=== PATIENT | male | born 1960 | race Caucasian/White ===

== ENCOUNTER 2016-11-17 13:48 | Day surgery (SDC) | payer OTHER ==
[~2016-11-17] VITALS: Ht 175.3 cm; Wt 87.1 kg
[2016-11-17] VITALS (10 sets, daily range): BP systolic 110–121; BP diastolic 67–77; PULSE 70–94; RESP 15–19; Ht 175.3 cm; Wt 87.1 kg
[~2016-11-17 13:48] MED LIST: AZIT250T94 PO; BUPIVACAINE 0.25% (MPF) 30 ML INJ ONE; CEFAZOLIN 1 GM INJ ONE; CETI10CA PO; CIPROFLOXACIN 400MG/D5W 200 ML IVPB ONE; GUAI118L94 PO; IBUP-1542 PO; SOD CHLORIDE 0.9% 1,000 ML IV SCH
[2016-11-17] MEDS ORDERED: PROP10TA6 PO (15:37)
[2016-11-17] MEDS ORDERED: OMEP20CA16 PO (15:37)
[2016-11-17] MEDS ORDERED: SPIR100T31 PO (15:37)
[2016-11-17] MEDS ORDERED: SOD CHLORIDE 0.9% 1,000 ML IV SCH (16:00)
[2016-11-17] MEDS ORDERED: CIPROFLOXACIN 400 MG in D5W 200 ML IVPB ONE (16:00)
[2016-11-17] MEDS ORDERED: MIDAZOLAM 1 MG/ML 2 ML INJ ONE (16:20)
[2016-11-17] MEDS ORDERED: ROPIVACAINE 0.2% 20 ML VIAL ONE (16:21)
[2016-11-17] MEDS ORDERED: METOCLOPRAMIDE 10 MG INJ ONE (16:21)
[2016-11-17] MEDS ORDERED: PROPOFOL 20 ML ONE ×2 (16:43→17:37)
[2016-11-17] MEDS ORDERED: LIDOCAINE 2% (SDV) 5 ML INJ ONE (16:44)
[2016-11-17] MEDS ORDERED: FENTAnyl 50 MCG/ML VIAL ONE (16:58)
[2016-11-17] MEDS ORDERED: DEXAMETHASONE 4 MG/ML 1 ML INJ ONE (17:12)
[2016-11-17] MEDS ORDERED: HYDROmorphONE (0.2 MG/ML) 10ML SYG IV PRN ×3 (17:30)
[2016-11-17] MEDS ORDERED: METOCLOPRAMIDE 10 MG INJ IV PRN (17:30)
[2016-11-17] MEDS ORDERED: MEPERIDINE 25 MG INJ IV PRN (17:30)
[2016-11-17] MEDS ORDERED: OXYCODONE/ACETAMINOPHEN (5/325) TAB PO PRN ×2 (17:30)
[2016-11-17] MEDS ORDERED: ONDANSETRON 4 MG INJ IV PRN (17:30)
[2016-11-17] MEDS ORDERED: DIPHENHYDRAMINE 50 MG INJ IV PRN (17:30)
[2016-11-17] MEDS ORDERED: NEOSTIGMINE 3 MG/3 ML SYRINGE ONE (17:34)
[2016-11-17] MEDS ORDERED: GLYCOPYRROLATE 1 MG INJ ONE (17:34)
[2016-11-17] MEDS ORDERED: HYDROmorphONE 2 MG/ML SYG ONE (17:51)
--- NOTE | 2016-11-17 17:59 | OPR ---
Date/Time of Note Date/Time of Note DATE: 11/17/16 TIME: 17:58 Operative Report Procedure Date: Nov 17, 2016 Preoperative Diagnosis LIH Postoperative Diagnosis LIH Operation Performed open LIH repair with large ultrapro hernia system mesh Surgeon: Shirley ORTIZ Specimens hernia sac Shirley ORTIZ Nov 17, 2016 17:59
[2016-11-17] MEDS ORDERED: oxyCODONE 5 MG TAB PO ONE (18:00)
--- NOTE | 2016-11-17 18:19 | OPR ---
DATE OF OPERATION: 11/17/2016 INDICATION: This is a 56-year-old male with a large incarcerated left inguinal hernia. He requests surgical repair. Risks, alternatives, benefits, and personnel were discussed with the patient. Th e patient expressed understanding and consents to the operation. Potential complications including but not limited to bleeding, infection, recurrence of hernia were discussed with the patient and fam arias members. They expressed understanding and consent to the operation. PREOPERATIVE DIAGNOSIS: Large incarcerated left inguinal hernia. POSTOPERATIVE DIAGNOSIS: Large incarcerated left inguinal hernia. OPERATION PERFORMED: Open left inguinal hernia repair with UltraPro Hernia System mesh, large. SURGEON: Lilli Odom MD SPECIMEN: Large hernia sac. COMPLICATIONS: None. ANESTHESIA: General. DESCRIPTION OF PROCEDURE: The patient was taken to the OR and prepped and draped in the usual ster ile fashion. Surgical timeout was performed. IV antibiotics were given. Left inguinal oblique inc ision was made with a 10 blade. Dissection cautery was carried down to the external oblique fascia, which was opened with a 15 blade. This incision is extended medial inferiorly and lateral superior ly with Metzenbaum scissors. Cord structures were identified. Large hernia sac was identified wit h fluid contents. This was all serous and was aspirated and discarded. The hernia is reduced and t he disk portion of the UltraPro Hernia System Mesh was secured in place with a running 0 Prolene fro m the pubic tubercle along the shelving edge of the inguinal ligament and superiorly to the internal oblique with interrupted 3-0 Vicryl. Onlay mesh is secured in place with a running 0 Prolene from the pubic tubercle along the shelving edge of the inguinal ligament and straps are created and reapp roximated to recreate the inguinal ring. The onlay mesh was secured to the internal oblique with in terrupted 3-0 Vicryl. The external oblique fascia was closed with running 3-0 Vicryl. Jeremy's was closed with interrupted 3-0 Vicryl. Skin was closed with skin lorrie. Dry dressings were applied . Dictated By: LILLI JAUREGUI/CHANDANA Conf#: [id number] DID#: [id number]
== END 2016-11-17 18:51 | disposition home or self-care (01) ==
LOC: SDS 13:48
PROVIDERS: ATTEND Surgery
DX: K40.30 Unilateral inguinal hernia, with obstruction, without gangrene, not specified as recurrent (principal)
CPT/HCPCS: 49507; 88302; C1781; J0690; J1100; J1170; J2250; J2710; J2765; J2795; J3010; Z7512; Z7610

== ENCOUNTER 2017-05-09 13:22 | Inpatient (IN) | payer OTHER ==
[~2017-05-09] VITALS: Ht 175.3 cm; Wt 90.5 kg
[~2017-05-09 13:22] MED LIST changes: -AZIT250T94 PO; -BUPIVACAINE 0.25% (MPF) 30 ML INJ ONE; -CEFAZOLIN 1 GM INJ ONE; -CETI10CA PO; -CIPROFLOXACIN 400MG/D5W 200 ML IVPB ONE; -GUAI118L94 PO; -IBUP-1542 PO; +OMEP20CA16 PO; +PROP10TA6 PO; -SOD CHLORIDE 0.9% 1,000 ML IV SCH; +SPIR100T31 PO
[2017-05-09 13:25] VITALS: Ht 175.3 cm; Wt 90.5 kg
[2017-05-09] MEDS ORDERED: ALBUTEROL 0.5% (NEB) 2.5 MG/0.5 ML AMP INH STA (15:46)
[2017-05-09] MEDS ORDERED: METHYLPREDNISOLONE 125 MG INJ IV STA (15:46)
[2017-05-09 16:13] LABS: ABNORMAL IP MESSAGE 1; BASOPHILS % 0.4 % (0.0-2.0); EOSINOPHILS % 0.2 % (0.0-7.0); HEMOGLOBIN 12.2 g/dl (14.0-18.0); LYMPHOCYTES # 0.6 10^3/ul (0.8-2.9); LYMPHOCYTES % 11.5 % (15.0-51.0); MEAN CORPUSCULAR HEMOGLOBIN 32.2 pg (29.0-33.0); MEAN CORPUSCULAR VOLUME 97.6 fl (82.0-101.0); MEAN PLATELET VOLUME 11.5 fl (7.4-10.4); MONOCYTE # 0.6 10^3/ul (0.3-0.9); MONOCYTES % 11.3 % (0.0-11.0); NEUTROPHILS % 75.8 % (39.0-77.0); PLATELET COUNT 52 10^3/UL (140-415); POSITIVE DIFF @See below; RED BLOOD COUNT 3.79 10^6/ul (4.70-6.10); RED CELL DISTRIBUTION WIDTH 17.5 % (11.5-14.5); WHITE BLOOD COUNT 5.2 10^3/ul (4.8-10.8)
[2017-05-09 16:36] LABS: CALCIUM 7.7 mg/dl (8.4-10.2); CREATININE 0.84 mg/dl (0.61-1.24); POTASSIUM 3.6 mmol/L (3.5-5.1)
[2017-05-09 16:45] LABS: TROPONIN-I 0.015 ng/ml (0.00-0.12)
--- NOTE | 2017-05-09 17:05 | RADRPT ---
PROCEDURE: XR Chest. CLINICAL INDICATION: Dyspnea. TECHNIQUE: XR CHEST AP PORTABLE COMPARISON: 05/16/2016. FINDINGS: There is a new large right pleural effusion with atelectasis. A large rounded density overlies the m ajority of the right cardiac silhouette. The left lung is clear. The left heart border is unremarkab le. There is no evidence of pneumothorax. Osseous structures are grossly intact. IMPRESSION: 1. New large right pleural effusion with atelectasis. 2. New rounded retrocardiac density which may represent a large hiatal hernia versus vascular abnor mality. CT chest may be useful for further evaluation. RPTAT: JJ .Reno Ramachandran MD, MD Date Time Electronically viewed and signed by .Reno Ramachandran MD, on 05/09/2017 17:04 .A/
[2017-05-09 17:30] LABS: PLATELET ESTIMATE SIG DECREASED
[2017-05-09] MEDS ORDERED: VANCOMYCIN 1 GM (PMX) 250 ML IVPB STA (17:35)
[2017-05-09] MEDS ORDERED: CEFTRIAXONE 1 GM/50 ML (PMX) 50 ML IVPB STA (17:35)
[2017-05-09] MEDS ORDERED: RIBA200C12 PO (17:43)
[2017-05-09] MEDS ORDERED: SOFO1TAB PO (17:43)
--- NOTE | 2017-05-09 17:56 | ERD ---
ER Documentation Chief Complaint Chief Complaint sob.fever,cough x 1 week HPI This is a 56-year-old male who states she has had a cough for 5 days has been dry until yesterday and today has had some green productive sputum. Patient said he had a fever today. Patient has some shortness of breath at rest is very mild worse when he walks and has wheezing at rest as well. He said when he tries to walk his wheezing gets worse. No chest pain no nausea vomiting diarrhea. ROS All systems reviewed and are negative except as per history of present illness. Medications Home Meds Reported Medications Sofosbuvir/Velpatasvir (Epclusa 400 mg-100 mg Tablet) 1 Each Tablet, 1 EACH PO DAILY, TAB TAKE FOR 3 MONTHS START DATE 04/11/17 05/09/17 Ribavirin (Ribavirin) 200 Mg Capsule, 600 MG PO BID, CAP FOR 3 MONTHS START DATE 04/11/17 05/09/17 Discontinued Reported Medications Omeprazole* (Omeprazole*) 20 Mg Capsule.dr, 20 MG PO DAILY, #30 CAP 11/17/16 Spironolactone* (Spironolactone*) 100 Mg Tablet, 25 MG PO DAILY, TAB 11/17/16 Propranolol Hcl* (Propranolol Hcl*) 10 Mg Tablet, 10 MG PO BID, TAB 11/17/16 [none] Unknown Strength No Conflict Check 07/01/15 Allergies Allergies: Coded Allergies: Penicillins (Verified Allergy, Unknown, 05/09/17) PMhx/Soc History of Surgery: No Anesthesia Reaction: No Hx Neurological Disorder: No Hx Respiratory Disorders: No Hx Cardiac Disorders: No Hx Psychiatric Problems: No Hx Miscellaneous Medical Probl: No Hx Alcohol Use: No Hx Substance Use: No Hx Tobacco Use: No Smoking Status: Never smoker FmHx Family History: No coronary disease Physical Exam Vitals Vital Signs Date Time Temp Pulse Resp B/P Pulse Ox O2 Delivery O2 Flow Rate FiO2 05/09/17 16:03 112 18 95 21 05/09/17 13:25 102.3 117 24 130/77 95 Physical Exam Const: Well-developed, well-nourished Head: Atraumatic, normocephalic Eyes: Normal Conjunctiva, PERRLA, EOMI, normal sclera, no nystagmus ENT: Normal External Ears, Nose and Mouth, moist mucus membranes. Neck: Full range of motion. No meningismus, no lymphadenopathy. Resp: Markedly decreased breath sounds in the right lung luther with bilateral wheezes Cardio: Regular rate and rhythm, no murmurs, S1 S2 present Abd: Soft, non tender x 4, non distended. Normal bowel sounds, no guarding or rebound, no pulsitile abdominal masses or bruits Skin: No petechiae or rashes, no ecchymosis , no maculopapular rash Back: No midline or flank tenderness Ext: No cyanosis, or edema, FROM x 4, normal inspection, neurovascularly intact x 4 Neur: Awake and alert, STR 5/5 x 4, sensation intact x 4, no focal findings, cerebellum intact Psych: Normal Mood and Affect Result Diagram: 05/09/17 1555 05/09/17 1555 Results 24 hrs Laboratory Tests Test 05/09/17 15:55 White Blood Count 5.210^3/ul Red Blood Count 3.7910^6/ul Hemoglobin 12.2g/dl Hematocrit 37.0% Mean Corpuscular Volume 97.6fl Mean Corpuscular Hemoglobin 32.2pg Mean Corpuscular Hemoglobin Concent 33.0g/dl Red Cell Distribution Width 17.5% Platelet Count 5210^3/UL Mean Platelet Volume 11.5fl Neutrophils % 75.8% Lymphocytes % 11.5% Monocytes % 11.3% Eosinophils % 0.2% Basophils % 0.4% Nucleated Red Blood Cells % 0.0/100WBC Neutrophils # 4.010^3/ul Lymphocytes # 0.610^3/ul Monocytes # 0.610^3/ul Eosinophils # 0.010^3/ul Basophils # 0.010^3/ul Nucleated Red Blood Cells # 0.010^3/ul Platelet Estimate SIG DECREASED Sodium Level 137mmol/L Potassium Level 3.6mmol/L Chloride Level 107mmol/L Carbon Dioxide Level 22mmol/L Anion Gap 12 Blood Urea Nitrogen 10mg/dl Creatinine 0.84mg/dl Glucose Level 94mg/dl Calcium Level 7.7mg/dl Troponin I 0.015ng/ml Current Medications Medications (Trade) Dose Ordered Sig/Vernon Route PRN Reason Start Time Stop Time Status Last Admin Dose Admin Albuterol (Proventil 0.5% (Neb)) 10 mg ONCE STAT INH 05/09/17 15:46 05/09/17 15:48 DC 05/09/17 16:01 Methylprednisolone Sodium Succinate (Solu-Medrol) 125 mg ONCE STAT IV 05/09/17 15:46 05/09/17 15:48 DC 05/09/17 15:46 Acetaminophen 650 mg 650 mg ONCE ONCE PO 05/09/17 18:00 05/09/17 18:01 05/09/17 17:44 Vancomycin HCl 250 ml @ 125 mls/hr ONCE STAT IVPB 05/09/17 17:35 05/09/17 19:34 Ceftriaxone Sodium (Rocephin) 50 ml @ 100 mls/hr ONCE STAT IVPB 05/09/17 17:35 05/09/17 18:04 05/09/17 17:44 Procedures/MDM PROCEDURE: XR Chest. CLINICAL INDICATION: Dyspnea. TECHNIQUE: XR CHEST AP PORTABLE COMPARISON: 05/16/2016. FINDINGS: There is a new large right pleural effusion with atelectasis. A large rounded density overlies the majority of the right cardiac silhouette. The left lung is clear. The left heart border is unremarkable. There is no evidence of pneumothorax. Osseous structures are grossly intact. IMPRESSION: 1. New large right pleural effusion with atelectasis. 2. New rounded retrocardiac density which may represent a large hiatal hernia versus vascular abnormality. CT chest may be useful for further evaluation. RPTAT: JJ .Reno Ramachandran MD, Date Time Electronically viewed and signed by .Reno Ramachandran MD, on 05/09/2017 17:04 .A/ CC: GO NUÑEZ DO Patient had breathing treatments and steroids also had antibiotics and Tylenol. He states after the breathing treatments he is breathing much better. The patient is nontoxic and well-appearing he is not appearing septic. He had blood cultures done and will be admitted to the hospital for a large pleural effusion with likely underlying consolidation Departure Diagnosis: Primary Impression: Pleural effusion, right Additional Impressions: Shortness of breath Pneumonia Pneumonia type: due to unspecified organism Laterality: right Lung location : lower lobe of lung Qualified Code: J18.1 - Pneumonia of right lower lobe due to infectious organism Condition: Stable GO NUÑEZ DO May 09, 2017 17:56
[2017-05-09] MEDS ORDERED: ACETAMINOPHEN 325 MG TAB PO ONE (18:00)
[2017-05-09] MEDS ORDERED: SOD CHLORIDE 0.9% 1,000 ML IV SCH (19:23)
[2017-05-09] MEDS ORDERED: ACETAMINOPHEN 325 MG TAB PO PRN ×2 (19:30→23:00)
[2017-05-09] MEDS ORDERED: ONDANSETRON 4 MG INJ IV PRN (19:30)
[2017-05-09 20:41] VITALS: TEMP 99.3
--- NOTE | 2017-05-09 20:52 | RADRPT ---
PROCEDURE: CT Chest without contrast. CLINICAL INDICATION: Abnormal chest x-ray. TECHNIQUE: CT scan of the chest without contrast was performed on a multidetector high-resolution C T scanner. Coronal and sagittal reformatted images were obtained from the axial source images. The total exam CTDI equals 13.63 mGy and the total exam DLP equals 530.97 mGy-cm. DICOM images are avail able. Evaluation is partially limited due to motion artifact. One or more of the following dose reduction techniques were used: - Automated exposure control. - Adjustment of the mA and/or kV according to patient size. - Use of iterative reconstruction technique. COMPARISON: Chest x-ray dated 05/09/2017. FINDINGS: Lungs, pleura, airways, and thoracic inlet: There is a large right pleural effusion with associated complete collapse of the right middle and right lower lobes and compressive atelectasis involving t he dependent right upper lobe. The left lung is clear. There is no pneumothorax. No focal pulmonary nodule or mass is identified. The tracheobronchial tree is patent and normal in course and caliber. There is irregular wall thickening of the mid and distal esophagus, which is patulous. Cardiovascular system, mediastinum, and lymphatics: There is shift of the mediastinal structures to wards the left. The heart is normal in size without pericardial thickening or effusion. There are a therosclerotic changes of the aorta, which is nonaneurysmal. There is no axillary, hilar, or mediast inal adenopathy. Visualized upper abdomen: The liver is small and nodular in contour, suggestive of underlying cirrh osis. There is a stone of the visualized gallbladder and the visualized spleen is at the upper limit s of normal in size measuring 30.6 cm, which extends inferiorly out of the field of view. There is l ikely a recanalized paraumbilical vein and there are additional tubular serpiginous structures in th e visualized upper abdomen. There is ascites within the visualized upper abdomen. Musculoskeletal system and soft tissues: There is mild multilevel degenerative enthesopathy. There are no concerning osseous lesions. There is bilateral gynecomastia. IMPRESSION: 1. Large right effusion with associated complete collapse of the right middle and right lower lobes and compressive atelectasis of the dependent right upper lobe. Associated shift of the mediastinal structures towards the left. 2. Morphologic changes of the liver, suggestive of underlying cirrhosis. Stigmata of portal hyperte nsion including varices, likely splenomegaly, and ascites. 3. Cholelithiasis. 4. Patulous esophagus with irregular wall thickening at the mid and distal portions. Correlation wi th upper GI series versus upper endoscopy is recommended. 5. Vascular calcifications consistent with atherosclerosis. 6. Bilateral gynecomastia. RPTAT: HLBP .Jian Dowd MD, MD Date Time Electronically viewed and signed by .Jian Dowd MD, on 05/09/2017 20:51 .P/
[2017-05-09 21:11] VITALS: BP 116/75; RESP 20
[2017-05-09 22:25] VITALS: PULSE 100
[2017-05-09] MEDS ORDERED: ONDANSETRON 4 MG TAB PO PRN (23:00)
[2017-05-09] MEDS ORDERED: NACL 0.9% 3 ML SYG IV SCH (23:00)
--- NOTE | 2017-05-09 23:03 | HP ---
Date/Time of Note Date/Time of Note DATE: 05/09/17 TIME: 23:02 Assessment/Plan VTE Prophylaxis VTE Prophylaxis Intervention: SCD's Assessment/Plan Chief Complaint/Hosp Course This is a 57-year-old male being admitted to the telemetry floor for: #1 large right-sided pleural effusion: Etiology unknown at this time patient does have a history of cirrhosis. Which could possibly be a contributing factor. At the current time we will schedule the patient for ultrasound-guided thoracentesis. Will obtain fluid analysis to further evaluate the pleural effusion. Patient does have thrombus cytopenia platelet count 52,000, will will need to confirm in the morning with IR still performed the procedure. Will check a PT PTT and INR. Also check a 2D echocardiogram and a BNP. #2Fever: unknown origin at this time. presented with elevated temp. Possible underlying pna though unable to visualize due to extensive large pleural effusion. I will begin treatment with levaquin at the current time. Await blood cultures, will also check a UA. #3cirrhosis: CT scan does show the Stigmata of portal hypertension including varices, likely splenomegaly, and ascites. Patient has never had an endoscopy done before. Will check an ammonia level. Will also give a dose of Lasix 40 mg IV 1. Patient at the current time does not appear confused or encephalopathic. Will check coags. #4 Abnormal esophageal appearance on CT: Patulous esophagus with irregular wall thickening at the mid and distal portions. She denies any history of issues with swallowing. However he was told in the past that he had varices. at the current time will keep patient n.p.o. Will consult GI for possible endoscopy. Upper GI x-ray ordered #5 hepatitis C: We will check a viral panel. We will continue patient's home medications. He is followed by liver specialist as an outpatient. #6 thrombocytopenia: Likely secondary to patient underlying cirrhosis/hepatitis C. Patient is a [employer] and he does not want to receive any blood products including platelets. #7 DVT GI prophylaxis: SCDs, no GI prophylaxis indicated Patient is agreeable to having an endoscopy to assess his esophageal varices as well as as the abnormal esophageal wall thickening seen on the CAT scan. Patient is agreeable to having an ultrasound-guided thoracentesis to help drain his large right pleural effusion. He understands risks and benefits of the procedure. We will need to confirm with interventional radiology in the a.m. if his platelet count is adequate for thoracentesis as patient does not want any blood products secondary to him being a Anab[employer]. Further treatment strategy will be implemented as per the clinical course Problems: HPI/ROS Admit Date/Time Admit Date/Time May 09, 2017 at 19:25 Hx of Present Illness cc: cough x 5 days This is a 56-year-old male who states she has had a cough for 5 days has been dry until yesterday and today has had some green productive sputum. Patient said he had a fever today. Patient has some shortness of breath at rest is very mild worse when he walks and has wheezing at rest as well. He said when he tries to walk his wheezing gets worse. No chest pain no nausea vomiting diarrhea. allergies: pcn Meds: ribavirin epclose Social history: Patient is a An[employer] and he refuses any blood transfusions or platelets, etc. ROS Const: As per HPI Eyes : No pain discharge or redness or change in visual acuity ENT: No pain, sore throat, congestion, congestion, dysphagia or discharge Respiratory: As per HPI Cardiovascular: No chest pain, palpitation, PND, or edema GI : no change in appetite, abdominal pain, nausea, vomiting, diarrhea, constipation, or change in the color his stool Genitourinary: No dysuria, hematuria, flank pain , discharge or CVA tenderness Musculoskeletal: No joint pain, back pain, neck pain, restricted range of motion in neck or joints Skin: No rash, bruising or hives Neuro: No headache, dizziness, syncope, seizure, focal weakness Endocrine: No polyuria, polydipsia, temperature intolerance Psych: No hallucination, depression, anxiety or suicidal ideation PMH/Family/Social Past Medical History Cirrhosis, HCV, gastritis Past Surgical History Left inguinal hernia surgery Family History Significant Family History: no pertinent family hx Social History Previous history of IV drug use greater than 25 years ago Alcohol Use: none Smoking Status: Never smoker Drug Use: none Exam/Review of Systems Vital Signs Vitals Vital Signs Date Time Temp Pulse Resp B/P Pulse Ox O2 Delivery O2 Flow Rate FiO2 05/09/17 21:11 98.3 96 20 116/75 94 05/09/17 16:03 21 Exam Exam General: She is lying in bed in respiratory distress HEENT: Atraumatic, normocephalic. The pupils are equal, round and reactive. Extraocular motor are intact Neck: Supple with full range of motion. No rigidity or meningismus Chest: Nontender Lungs: No breath sounds on the bottom two thirds of the right lung on respiration, left lung clear to auscultation no rales or wheezes,, no acute respiratory distress Heart: Normal S1-S2, Regular rhythm and rate. No murmur, S3, or S4 Abdomen: Soft , nontender, nondistended , bowel sounds are present. No guarding no rebound tenderness , No masses or organomegaly. No costovertebral temporal angle mass Extremities: Normal to inspection, no edema no cyanosis Neurologic: Normal mental status, speech normal, cranial nerves II through XII are intact, motor and sensory are intact, no focal weakness Labs Result Diagram: 05/09/17 1555 05/09/17 1555 Medications Medications Current Medications Sodium Chloride (NS) 1,000 ml @ 80 mls/hr [id number] IV ; Start 05/09/17 at 19:23 ; Stop 05/10/17 at 07:52 FÁTIMA BENNETT May 09, 2017 23:03
[2017-05-09] MEDS ORDERED: LEVOFLOXACIN 750MG/D5W (PMX) 150 ML IVPB ONE (23:30)
[2017-05-09 23:53] VITALS: BP 118/78; RESP 20
[2017-05-10] VITALS (11 sets, daily range): BP systolic 114–128; BP diastolic 68–80; PULSE 89–97; RESP 16–20
[2017-05-10] MEDS ORDERED: [UNRECOGNIZED DRUG - REMARK] XX SCH (08:00)
[2017-05-10] MEDS ORDERED: [UNRECOGNIZED DRUG - MIXTURE] XX SCH (08:00)
[2017-05-10] MEDS ORDERED: NON-FORMULARY/PATIENT OWN MED (Sofosbuvir/Velpatasvir (Epclusa 400 mg-100 mg Tablet) 1 EAC PO SCH (09:00)
[2017-05-10] MEDS: SOFOSBUVIR PO SCH (09:00)
[2017-05-10] MEDS: RIBAVIRIN PO SCH ×2 (09:00→21:35)
[2017-05-10] MEDS: VELPATASVIR PO SCH (09:00)
[2017-05-10] MEDS ORDERED: RIBAVIRIN 600 MG PO SCH (09:00)
[2017-05-10 09:19] LABS: ABNORMAL IP MESSAGE 1; BASOPHILS % 0.2 % (0.0-2.0); HEMATOCRIT 36.1 % (42.0-52.0); HEMOGLOBIN 11.7 g/dl (14.0-18.0); LYMPHOCYTES # 0.4 10^3/ul (0.8-2.9); LYMPHOCYTES % 9.1 % (15.0-51.0); MEAN CORPUSCULAR HEMOGLOBIN 32.1 pg (29.0-33.0); MEAN CORPUSCULAR HGB CONC 32.4 g/dl (32.0-37.0); MEAN CORPUSCULAR VOLUME 99.2 fl (82.0-101.0); MEAN PLATELET VOLUME 12.1 fl (7.4-10.4); MONOCYTE # 0.2 10^3/ul (0.3-0.9); MONOCYTES % 4.8 % (0.0-11.0); NEUTROPHIL # 3.5 10^3/ul (1.6-7.5); NEUTROPHILS % 85.2 % (39.0-77.0); PLATELET COUNT 39 10^3/UL (140-415); POSITIVE DIFF @See below; RED BLOOD COUNT 3.64 10^6/ul (4.70-6.10); RED CELL DISTRIBUTION WIDTH 17.3 % (11.5-14.5); WHITE BLOOD COUNT 4.2 10^3/ul (4.8-10.8)
[2017-05-10 09:40] LABS: INR 2.12; PT RATIO 1.9
[2017-05-10 09:41] LABS: PARTIAL THROMBOPLASTIN TIME 37.8 Sec (25.0-35.0)
[2017-05-10 09:51] LABS: ALBUMIN 2.5 g/dl (3.3-4.9); ALBUMIN/GLOBULIN RATIO 0.49; BILIRUBIN,INDIRECT 1.5 mg/dl (0-1.1); BILIRUBIN,TOTAL 1.5 mg/dl (0.2-1.3); CALCIUM 7.6 mg/dl (8.4-10.2); CHOL/HDL RATIO 3.3 RATIO; CREATININE 0.74 mg/dl (0.61-1.24); MAGNESIUM 1.8 mg/dl (1.7-2.5); TOTAL PROTEIN 7.6 g/dl (6.1-8.1)
[2017-05-10] MEDS ORDERED: PHYTONADIONE 10 MG in DEXTROSE 5% 50 ML IVPB ONE (11:30)
--- NOTE | 2017-05-10 11:41 | CONS ---
Date/Time of Note Date/Time of Note DATE: 05/10/17 TIME: 11:14 Assessment/Plan Assessment/Plan Chief Complaint/Hosp Course Summary Assessment and Plan: Assessment: Hepatitis C- currently on treatment Cirrhosis- secondary to Hep C Thrombocytopenia- likely secondary to cirrhosis Patulous esophagus with irregular wall thickening at the mid and distal portions Esophageal Varies . Large right-sided pleural effusion Plan: Continue Hep C medication Cancel upper GI series EGD tomorrow Endoscopy - risks/benefits/alternatives/indications of procedure and sedation/ anesthesia discussed with patient who states understanding and gives informed consent to proceed. PARQ held and questions were answered. pt seen in collaboration with Dr. 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 Presented to the ER with increasing shortness of breath and fatigue over the past 6 days. Initial lab workup shows minimal anemia and thrombocytopenia PLT 39, bilirubin 1.5, AST minimally elevated, INR 2.12, PT [address] chest without contrast ordered and shows large right effusion with associated complete collapse of the right middle and right lower lobes and compressive atelectasis of the dependent right upper lobe. Associated shift of the mediastinal structures towards the left. Morphologic changes of the liver, suggestive of underlying cirrhosis. Stigmata of portal hypertension including varices, likely splenomegaly, and ascites. Cholelithiasis. Patulous esophagus with irregular wall thickening at the mid and distal portions. Correlation with upper GI series versus upper endoscopy is recommended. Vascular calcifications consistent with atherosclerosis. Bilateral gynecomastia. Patient states he has never had an upper endoscopy or colonoscopy. He denies abdominal pain, nausea, vomiting, hematochezia, hematemesis, unintentional weight loss, constipation, or diarrhea. With current presentation will plan for EGD tomorrow and d/c upper GI series for today, patient to continue HEP C treatment, and maintain NPO diet. Pt will received vitamin K today and will recheck INR in am. Further recommendations after EGD. Patient is a Judaism and he does not want to receive any blood products including platelets. Review of Systems: Gastrointestinal and liver: Positive for: Negative for: Anorexia, dysphagia, odynophagia, pyrosis, regurgitation, nausea, vomiting, early satiety, bloating, abdominal pain, food intolerance, diarrhea, constipation, change in bowel habits , laxative use, hematemesis, melena, hematochezia, and rectal symptoms, incontinence, jaundice. Past Medical History Medical History: hepatitis (Hepatitis C on treatment, cirrhosis) Past Surgical History Past Surgical Hx: other (Hernia repair 4 months ago) Social History Alcohol Use: other (History of heavy drinking quit 25 years ago) Smoking Status: Never smoker Drug Use: none, other (History of IV drug use quit 25 years ago) Exam/Review of Systems Vital Signs Vitals Vital Signs Date Time Temp Pulse Resp B/P Pulse Ox O2 Delivery O2 Flow Rate FiO2 05/10/17 08:00 96 05/10/17 07:46 97.9 16 114/77 96 05/09/17 16:03 21 Exam Constitutional: alert, oriented Psych: nl mood/affect, no complaints Head: atraumatic, normocephalic Eyes: EOMI, nl conjunctiva ENMT: nl external ears & nose, nl lips & teeth Neck: supple Respiratory: crackles/rales, diminished breath sounds Cardiovascular: regular rate and rhythm Gastrointestinal: ascites, bowel sounds, distended, splenomegaly, No firm, No mass, No rebound or guarding Genitourinary - Male: nl penis Musculoskeletal: nl extremities to inspection Results Result Diagram: 05/10/17 0809 05/10/17 0809 Results 24 hrs Laboratory Tests Test 05/09/17 15:55 05/09/17 23:26 05/10/17 08:08 05/10/17 08:09 White Blood Count 5.2 4.2 L Red Blood Count 3.79 L 3.64 L Hemoglobin 12.2 L 11.7 L Hematocrit 37.0 L 36.1 L Mean Corpuscular Volume 97.6 99.2 Mean Corpuscular Hemoglobin 32.2 32.1 Mean Corpuscular Hemoglobin Concent 33.0 32.4 Red Cell Distribution Width 17.5 H 17.3 H Platelet Count 52 L 39 #L Mean Platelet Volume 11.5 H 12.1 H Neutrophils % 75.8 85.2 H Lymphocytes % 11.5 L 9.1 L Monocytes % 11.3 H 4.8 Eosinophils % 0.2 0.0 Basophils % 0.4 0.2 Nucleated Red Blood Cells % 0.0 0.0 Neutrophils # 4.0 3.5 Lymphocytes # 0.6 L 0.4 L Monocytes # 0.6 0.2 L Eosinophils # 0.0 0.0 Basophils # 0.0 0.0 Nucleated Red Blood Cells # 0.0 0.0 Platelet Estimate SIG DECREASED Sodium Level 137 141 Potassium Level 3.6 4.0 Chloride Level 107 110 Carbon Dioxide Level 22 23 Anion Gap 12 12 Blood Urea Nitrogen 10 12 Creatinine 0.84 0.74 Glucose Level 94 112 Calcium Level 7.7 L 7.6 L Troponin I 0.015 Carcinoembryonic Antigen 3.5 Prothrombin Time 24.0 H Prothrombin Time Ratio 1.9 INR International Normalized Ratio 2.12 Activated Partial Thromboplast Time 37.8 H Hemoglobin A1c 4.2 Magnesium Level 1.8 Total Bilirubin 1.5 H Direct Bilirubin 0.00 Indirect Bilirubin 1.5 H Aspartate Amino Transf (AST/SGOT) 65 H Alanine Aminotransferase (ALT/SGPT) 54 Alkaline Phosphatase 116 Ammonia 40 H B-Type Natriuretic Peptide 194 H Total Protein 7.6 Albumin 2.5 L Globulin 5.10 H Albumin/Globulin Ratio 0.49 Triglycerides Level 68 Cholesterol Level 105 LDL Cholesterol, Calculated 60 HDL Cholesterol 31 Cholesterol/HDL Ratio 3.3 Thyroid Stimulating Hormone (TSH) Pending Medications Medications Current Medications Ondansetron HCl (Zofran Tab) 4 mg Q6H PRN PO NAUSEA AND/OR VOMITING; Start at 23:00 Acetaminophen (Tylenol Tab) 650 mg Q6H PRN PO PAIN LEVEL 1-3 OR FEVER; Start 05/09/17 at 23:00 Influenza Virus Vaccine (Fluzone) 0.5 ml ONCE ONCE IM* ; Start 05/11/17 at 09:00 ; Stop 05/11/17 at 09:01 Patient Own Medication 3 ea BID PO ; Start 05/10/17 at 09:00 Patient Own Medication 1 ea DAILY PO ; Start 05/10/17 at 09:00 Copies To: CC: FARHAD CLEMENT MD, VICTORIA May 10, 2017 11:24
--- NOTE | 2017-05-10 12:08 | CONS ---
DATE OF ADMISSION: 05/09/2017 DATE OF CONSULTATION: #[id number] TYPE OF CONSULTATION: Pulmonary. REASON FOR CONSULTATION: Pleural effusion. Thank you, Dr. Briscoe, for this consultation. HISTORY OF PRESENT ILLNESS: This is a 57-year-old gentleman with a prior history of cirrhosis, came in with a several-day history of increasing shortness of breath, orthopnea, PND, found to have a mo derate right pleural effusion. On admission, no orthopnea, no PND, no fever, no chills. Patient is a poor historian, unable to give me further details. PAST MEDICAL HISTORY: Includes: 1. Cirrhosis with portal hypertension. 2. Hepatitis C. 3. Thrombocytopenia. MEDICATIONS: Per chart. ALLERGIES: NONE. SOCIAL HISTORY: Nonsmoker, no alcohol, no history of drug use. FAMILY HISTORY: Noncontributory. SYSTEMS REVIEW: A 12-point review of systems was negative other than that mentioned above. PHYSICAL EXAMINATION: GENERAL: Well-nourished, well-developed gentleman, comfortable at rest, talking in full and complet e sentences. VITAL SIGNS: Currently afebrile. Pulse is 80, blood pressure 120/60, O2 saturation 96% on FIO2 of room air. NECK: Supple. No JVD or lymphadenopathy. CARDIAC: S1, S2, no added sounds or murmurs. CHEST: Diminished air entry bilaterally. ABDOMEN: Soft, nontender. No guarding or rebound. EXTREMITIES: No cyanosis, clubbing, 1+ edema. NEUROLOGIC: Generalized weakness. LABORATORIES: White count 4.2, hemoglobin 11.7, platelets of 39, BUN 12, creatinine 0.74. Ammonia was 40, INR was 2.12. IMPRESSION AND PLAN: 1. Coagulopathy with thrombocytopenia secondary to underlying chronic liver disease. 2. Right pleural effusion, likely hepatic hydrothorax. PLAN: 1. Correct thrombocytopenia with platelet transfusion. 2. Correction of elevated INR with vitamin K and fresh frozen plasma. 3. Thoracentesis with pleural fluid studies. 4. Consider transfer to liver unit if stable again. Per chart, he appears to be Yazidism. We will confirm that he does not want blood products transfusion in which case may be difficult to perform thoracentesis safely. Dictated By: RUPERTO STAFFORD/CHANDANA Conf#: [id number] [facility]#: [id number]
[2017-05-10 14:08] LABS: THYROID STIMULATING HORMONE 1.77 MIU/L (0.465-4.680)
--- NOTE | 2017-05-10 14:22 | PN ---
Date/Time of Note Date/Time of Note DATE: 05/10/17 TIME: 14:18 Assessment/Plan VTE Prophylaxis VTE Prophylaxis Intervention: other Lines/Catheters [facility] Saline Lock Urinary Cath still in place: No Assessment/Plan Chief Complaint/Hosp Course 57 yo male with HCV cirrhosis on Harvoni presenting wiht SOB and fever. Found to have large R sided pleural effusion Pneumonia: - Continue vanco/zosyn for now Pleural effusion: - Perhaps hepatic hydrothorax, however in setting of fever and likely pneumonia parapneumonic effusion must be considered. Thrombocytopenia and elevated INR preclude tap per IR Pancytopenia: - As a result of cirrhosis HCV cirrhosis: - Continue home supply of Harvoni Problems: Subjective 24 Hr Interval Summary Free Text/Dictation Fever resolved w abx Still w cough and SOB Discussed at length he has a pleural effusion concerning for parapneumonic effusion and recommend thoracentesis. He is willing to undergo this procedure. However, platelets low and INR high which preclude Dr Kaur being willing to perform it. The patient is a Anglican and is adamant against tranfusions. He event stated he would prefer to receiving tranfusion. Exam/Review of Systems Vital Signs Vitals Vital Signs Date Time Temp Pulse Resp B/P Pulse Ox O2 Delivery O2 Flow Rate FiO2 05/10/17 12:00 97 05/10/17 11:40 98.2 16 122/77 95 05/09/17 16:03 21 Exam Constitutional: alert, oriented, well developed Psych: nl mood/affect, no complaints Head: atraumatic, normocephalic Eyes: EOMI, PERRL, nl conjunctiva, nl lids, nl sclera ENMT: nl external ears & nose, nl lips & teeth, nl nasal mucosa & septum Neck: non-tender, supple Respiratory: clear to auscultation, normal air movement Cardiovascular: nl pulses, regular rate and rhythm Gastrointestinal: nl liver, spleen, non-tender, soft Musculoskeletal: nl extremities to inspection, nl gait and stance Extremities: normal pulses Neurological: PLATE STRAIGHTENER II-XII intact, nl mental status, nl speech, nl strength Skin: nl turgor, No rash or lesions Lymph: nl lymph nodes Results Result Diagram: 05/10/17 0809 05/10/17 0809 Results 24 hrs Laboratory Tests Test 05/09/17 15:55 05/09/17 23:26 05/10/17 08:08 05/10/17 08:09 White Blood Count 5.2 4.2 L Red Blood Count 3.79 L 3.64 L Hemoglobin 12.2 L 11.7 L Hematocrit 37.0 L 36.1 L Mean Corpuscular Volume 97.6 99.2 Mean Corpuscular Hemoglobin 32.2 32.1 Mean Corpuscular Hemoglobin Concent 33.0 32.4 Red Cell Distribution Width 17.5 H 17.3 H Platelet Count 52 L 39 #L Mean Platelet Volume 11.5 H 12.1 H Neutrophils % 75.8 85.2 H Lymphocytes % 11.5 L 9.1 L Monocytes % 11.3 H 4.8 Eosinophils % 0.2 0.0 Basophils % 0.4 0.2 Nucleated Red Blood Cells % 0.0 0.0 Neutrophils # 4.0 3.5 Lymphocytes # 0.6 L 0.4 L Monocytes # 0.6 0.2 L Eosinophils # 0.0 0.0 Basophils # 0.0 0.0 Nucleated Red Blood Cells # 0.0 0.0 Platelet Estimate SIG DECREASED Sodium Level 137 141 Potassium Level 3.6 4.0 Chloride Level 107 110 Carbon Dioxide Level 22 23 Anion Gap 12 12 Blood Urea Nitrogen 10 12 Creatinine 0.84 0.74 Glucose Level 94 112 Calcium Level 7.7 L 7.6 L Troponin I 0.015 Carcinoembryonic Antigen 3.5 Prothrombin Time 24.0 H Prothrombin Time Ratio 1.9 INR International Normalized Ratio 2.12 Activated Partial Thromboplast Time 37.8 H Hemoglobin A1c 4.2 Magnesium Level 1.8 Total Bilirubin 1.5 H Direct Bilirubin 0.00 Indirect Bilirubin 1.5 H Aspartate Amino Transf (AST/SGOT) 65 H Alanine Aminotransferase (ALT/SGPT) 54 Alkaline Phosphatase 116 Ammonia 40 H B-Type Natriuretic Peptide 194 H Total Protein 7.6 Albumin 2.5 L Globulin 5.10 H Albumin/Globulin Ratio 0.49 Triglycerides Level 68 Cholesterol Level 105 LDL Cholesterol, Calculated 60 HDL Cholesterol 31 Cholesterol/HDL Ratio 3.3 Thyroid Stimulating Hormone (TSH) 1.770 HIV (1&2) Antibody NEGATIVE Medications Medications Current Medications Ondansetron HCl (Zofran Tab) 4 mg Q6H PRN PO NAUSEA AND/OR VOMITING; Start at 23:00 Acetaminophen (Tylenol Tab) 650 mg Q6H PRN PO PAIN LEVEL 1-3 OR FEVER; Start 05/09/17 at 23:00 Influenza Virus Vaccine (Fluzone) 0.5 ml ONCE ONCE IM* ; Start 05/11/17 at 09:00 ; Stop 05/11/17 at 09:01 Patient Own Medication 3 ea BID PO Last administered on 05/10/17 09:00; Admin Dose 3 EA; Start 05/10/17 at 09:00 Patient Own Medication 1 ea DAILY PO Last administered on 05/10/17 09:00; Admin Dose 1 EA; Start 05/10/17 at 09:00 ABHINAV VALDOVINOS MD May 10, 2017 14:22
[2017-05-10] MEDS ORDERED: VANCOMYCIN IV PER PHARMACY XX SCH (14:30)
--- NOTE | 2017-05-10 14:58 | RADRPT ---
Echocardiogram Report Patient Name: MALLORY HERNANDEZ Gender: Male Date: 1960 Study Date: 10-May-2017 Cell [employer] Department Supervisor: Shreyas [facility] Location: [address] Ref. Physician: FÁTIMA BENNETT Quality: Adequate Procedures: Transthoracic echocardiogram with complete 2D, M-Mode, and doppler examination. Indications: Large right sided pleural effusion. 2D/M Mode Doppler Measurement Value Normal Ranges Measurement Value Normal Ranges LVIDd 2D 5.0 3.5 - 5.6 cm AV Peak Don 1.6 m/sec LVIDs 2D 2.6 2.1 - 4.1 cm AV Peak PG 11.0 mmHg FS 2D 47.4 % LVOT Peak Don 1.3 m/sec LVPWd 2D 1.1 0.6 - 1.1 cm LVOT Peak PG 7.0 mmHg IVSd 2D 1.0 0.6 - 1.1 cm MV E Peak Don 1.2 m/sec IVS/LVPW 2D 0.9 MV A Peak Don 1.3 m/sec AoR Diam 2D 3.0 2.0 - 3.7 cm MV E/A 1.0 LA/Ao 2D 1 0 - 1 MV Decel Time 85 msec EDV 2D 124.0 cm3 MV E/A 1.0 ESV 2D 18.0 cm3 TR Peak Don 3.6 m/sec LA Dimen 2D 3.9 2.3 - 4.0 cm TR Peak PG 53.0 mmHg RVSP 56.0 mmHg Findings Left Ventricle: Normal left ventricular systolic function. Normal left ventricular cavity size. Normal left ventricular wall thickness. Ejection fraction is visually estimated at 65 %. Tissue Doppler/Mitral Doppler indices are consistent with impaired relaxation (Stage I diastolic dysfunction). Right Ventricle: Normal right ventricular size. Normal right ventricular systolic function. Left Atrium: The left atrium is normal in size. Right Atrium: The right atrium is normal in size. Mitral Valve: Mild mitral leaflet calcification. Mild mitral annular calcification. Mild mitral valve regurgitation. The regurgitation jet is eccentrically directed which may underestimate the severity of mitral regurgitation. Aortic Valve: Normal appearance of the aortic valve. No significant aortic stenosis or insufficiency. Tricuspid Valve: Normal appearance of the tricuspid valve. Estimated peak PA systolic pressure 56 mmHg. There is moderate tricuspid regurgitation. Pulmonic Valve: Pulmonic valve not well visualized. There is trace pulmonic regurgitation. Pericardium: Normal pericardium with no significant pericardial effusion. Pleural effusion seen. Aorta: Normal aortic root. IVC: Normal size and normal respiratory collapse consistent with normal right atrial pressure. Conclusions 1.Normal left ventricular systolic function. Normal left ventricular cavity size. Normal left ventricular wall thickness. Ejection fraction is visually estimated at 65 %. Tissue Doppler/Mitral Doppler indices are consistent with impaired relaxation (Stage I diastolic dysfunction). 2.Normal right ventricular size. Normal right ventricular systolic function. 3.The left atrium is normal in size. 4.The right atrium is normal in size. 5.Mild mitral valve regurgitation. The regurgitation jet is eccentrically directed which may underestimate the severity of mitral regurgitation. 6.No significant aortic stenosis or insufficiency. 7.Estimated peak PA systolic pressure 56 mmHg. There is moderate tricuspid regurgitation. 8.Normal pericardium with no significant pericardial effusion. Pleural effusion seen. Electronically Signed By: Samir Coelho 10-May-2017 14:58:15 -0800 Patient Name: MALLORY HERNANDEZ Study Date: 10-May-2017 [id number]
[2017-05-10] MEDS ORDERED: VANCOMYCIN 1.75 GM in SOD CHLORIDE 0.9% 500 ML IVPB SCH (16:30)
--- NOTE | 2017-05-10 21:55 | CONS ---
DATE OF ADMISSION: 05/09/2017 DATE OF CONSULTATION: HISTORY OF PRESENT ILLNESS: This is a 56-year-old male. Patient has a history of cirrhosis, has an INR of 2, was admitted with a history of hepatitis C. Part of his examination was a CAT scan of th e chest which has showed large right-sided pleural effusion with complete collapse of the right midd le lobe and right lower lobe. The patient has coagulopathy with a platelet count of 39, hemoglobin 11.7, INR of 2.12. PAST MEDICAL HISTORY: Hepatitis C, liver cirrhosis. PAST SURGICAL HISTORY: None. ALLERGIES: NONE. SOCIAL HISTORY: No smoking, drinking or drug use. MEDICATIONS: List reviewed. PHYSICAL EXAMINATION: VITAL SIGNS: Blood pressure is 121/68, pulse is 95, respirations 16, saturations 97%. CARDIOVASCULAR: Normal S1, S2. LUNGS: Clear. Have diminished breath sounds on the right. ABDOMEN: Soft. EXTREMITIES: Warm. IMPRESSION: Right pleural effusion. RECOMMENDATIONS: This patient will need right thoracentesis after INR has been corrected. Discusse d with the patient. We will discuss with the referring physicians. Dictated By: LELA EVANS MD FM/NTS Conf#: [id number] DID#: [id number] CC: FÁTIMA BENNETT MD;*End*
[2017-05-10] MEDS: LEVOFLOXACIN 750MG/D5W (PMX) 150 ML IVPB SCH (23:38)
[2017-05-11] VITALS (24 sets, daily range): BP systolic 101–140; BP diastolic 47–87; PULSE 72–91; RESP 14–18
[2017-05-11] MEDS: VANCOMYCIN 1.5 GM in SOD CHLORIDE 0.9% 250 ML IVPB SCH ×2 (04:21→17:13)
[2017-05-11 07:00] LABS: ADD UMIC NO; UR ASCORBIC ACID NEGATIVE (NEGATIVE); UR BILIRUBIN (Dip) NEGATIVE (NEGATIVE); UR BLOOD (Dip) NEGATIVE (NEGATIVE); UR CLARITY CLEAR (CLEAR); UR COLOR YELLOW (YELLOW); UR GLUCOSE (Dip) NEGATIVE (NEGATIVE); UR KETONES (Dip) NEGATIVE (NEGATIVE); UR LEUKOCYTE ESTERASE (Dip) NEGATIVE Leu/ul (NEGATIVE); UR NITRITE (Dip) NEGATIVE (NEGATIVE); UR TOTAL PROTEIN (Dip) NEGATIVE (NEGATIVE); UR UROBILINOGEN (Dip) NEGATIVE (NEGATIVE)
[2017-05-11 07:14] LABS: ABNORMAL IP MESSAGE 1; BASOPHILS % 0.3 % (0.0-2.0); EOSINOPHILS # 0.1 10^3/ul (0.0-0.5); EOSINOPHILS % 0.7 % (0.0-7.0); HEMATOCRIT 38.5 % (42.0-52.0); HEMOGLOBIN 12.6 g/dl (14.0-18.0); LYMPHOCYTES % 14.1 % (15.0-51.0); MEAN CORPUSCULAR HEMOGLOBIN 32.4 pg (29.0-33.0); MEAN CORPUSCULAR HGB CONC 32.7 g/dl (32.0-37.0); MEAN PLATELET VOLUME 10.3 fl (7.4-10.4); MONOCYTE # 0.4 10^3/ul (0.3-0.9); MONOCYTES % 6.2 % (0.0-11.0); NEUTROPHIL # 5.3 10^3/ul (1.6-7.5); NEUTROPHILS % 78.3 % (39.0-77.0); POSITIVE DIFF @See below; RED BLOOD COUNT 3.89 10^6/ul (4.70-6.10); WHITE BLOOD COUNT 6.8 10^3/ul (4.8-10.8)
[2017-05-11 07:18] LABS: PLATELET COUNT 56 10^3/UL (140-415)
[2017-05-11] MEDS ORDERED: BENZONATATE 100 MG CAP PO PRN (07:30)
[2017-05-11 07:39] LABS: ALBUMIN 2.4 g/dl (3.3-4.9); ALBUMIN/GLOBULIN RATIO 0.42; BILIRUBIN,INDIRECT 1.4 mg/dl (0-1.1); BILIRUBIN,TOTAL 1.4 mg/dl (0.2-1.3); CALCIUM 7.8 mg/dl (8.4-10.2); CREATININE 0.81 mg/dl (0.61-1.24); INR 1.92; POTASSIUM 3.8 mmol/L (3.5-5.1); PROTIME 22.4 Sec (11.9-14.9); PT RATIO 1.8
[2017-05-11] MEDS ORDERED: INFLUENZA VIRUS VACCINE 0.5 ML (DISPENSING) IM* ONE (09:00)
[2017-05-11] MEDS: RIBAVIRIN PO SCH ×2 (09:18→21:13)
[2017-05-11] MEDS: VELPATASVIR PO SCH (09:20)
[2017-05-11] MEDS: SOFOSBUVIR PO SCH (09:20)
--- NOTE | 2017-05-11 11:07 | CONS ---
Date/Time of Note Date/Time of Note DATE: 05/11/17 TIME: 11:04 Assessment/Plan Assessment/Plan Additional Assessment/Plan Assessment and recommendations; 1. Patient admitted with shortness of breath due to very large right pleural effusion with likely is hepatic hydrothorax. 2. Advanced cirrhosis of liver. 3. Thrombocytopenia and mild coagulopathy. Patient scheduled for EGD today. After which he will undergo ultrasound-guided right thoracentesis. Patient's INR is not high enough to contraindicate thoracentesis. Consultation Date/Type/Reason Admit Date/Time May 09, 2017 at 19:25 Initial Consult Date Type of Consultation: Pulmonary/critical care 24 HR Interval Summary Free Text/Dictation Patient's condition is stable. Denies any significant shortness of breath. Denies any abdominal pain, nausea, vomiting. General exam; middle-aged male, currently in no distress awake and alert. Exam/Review of Systems Vital Signs Vitals Vital Signs Date Time Temp Pulse Resp B/P Pulse Ox O2 Delivery O2 Flow Rate FiO2 05/11/17 08:23 85 05/11/17 07:36 98.2 16 112/74 99 05/09/17 16:03 21 Intake and Output 05/10/17 05/10/17 05/11/17 15:00 23:00 07:00 Intake Total 200 ml 200 ml 200 ml Balance 200 ml 200 ml 200 ml Exam HEENT exam; supple neck, no JVD. No lymphadenopathy. Midline trachea. No thyromegaly. Chest exam; diminished breath sound right lung. Left lung is clear to auscultation. S1-S2 audible, no murmurs. Regular rhythm. Abdomen exam; soft, bowel sounds audible. No organomegaly. Nontender. Extremity exam; no peripheral edema. SYNTHETIC FILAMENT EXTRUDER exam; no focal deficit. Results Result Diagram: 05/11/17 0637 05/11/17 0637 Results 24 hrs Laboratory Tests Test 05/10/17 23:30 05/11/17 06:37 Urine Color YELLOW Urine Clarity CLEAR Urine pH 6.0 Urine Specific [place] 1.030 Urine Ketones NEGATIVE Urine Nitrite NEGATIVE Urine Bilirubin NEGATIVE Urine Urobilinogen NEGATIVE Urine Leukocyte Esterase NEGATIVE Urine Hemoglobin NEGATIVE Urine Glucose NEGATIVE Urine Total Protein NEGATIVE White Blood Count 6.8 # Red Blood Count 3.89 L Hemoglobin 12.6 L Hematocrit 38.5 L Mean Corpuscular Volume 99.0 Mean Corpuscular Hemoglobin 32.4 Mean Corpuscular Hemoglobin Concent 32.7 Red Cell Distribution Width 18.0 H Platelet Count 56 #L Mean Platelet Volume 10.3 Neutrophils % 78.3 H Lymphocytes % 14.1 L Monocytes % 6.2 Eosinophils % 0.7 Basophils % 0.3 Nucleated Red Blood Cells % 0.0 Neutrophils # 5.3 Lymphocytes # 1.0 Monocytes # 0.4 Eosinophils # 0.1 Basophils # 0.0 Nucleated Red Blood Cells # 0.0 Prothrombin Time 22.4 H Prothrombin Time Ratio 1.8 INR International Normalized Ratio 1.92 Sodium Level 142 Potassium Level 3.8 Chloride Level 110 Carbon Dioxide Level 26 Anion Gap 10 Blood Urea Nitrogen 17 Creatinine 0.81 Glucose Level 87 Calcium Level 7.8 L Total Bilirubin 1.4 H Direct Bilirubin 0.00 Indirect Bilirubin 1.4 H Aspartate Amino Transf (AST/SGOT) 75 H Alanine Aminotransferase (ALT/SGPT) 61 Alkaline Phosphatase 164 H Total Protein 8.0 Albumin 2.4 L Globulin 5.60 H Albumin/Globulin Ratio 0.42 Alpha Fetoprotein 7.54 H Medications Medications Current Medications Ondansetron HCl (Zofran Tab) 4 mg Q6H PRN PO NAUSEA AND/OR VOMITING; Start at 23:00 Acetaminophen (Tylenol Tab) 650 mg Q6H PRN PO PAIN LEVEL 1-3 OR FEVER; Start 05/09/17 at 23:00 Patient Own Medication 3 ea BID PO Last administered on 05/11/17 09:18; Admin Dose 3 EA; Start 05/10/17 at 09:00 Patient Own Medication 1 ea 1 ea DAILY PO Last administered on 05/11/17 09:20 ; Admin Dose 1 EA; Start 05/10/17 at 09:00 Levofloxacin/ Dextrose 150 ml @ 100 mls/hr Q24H IVPB Last administered on 23:38; Admin Dose 100 MLS/HR; Start 05/10/17 at 23:00 Vancomycin HCl/ Sodium Chloride (Vancocin/NS) 250 ml @ 83.333 mls/ hr Q12H IVPB Last administered on 05/11/17 04:21; Admin Dose 83.333 MLS/HR; Start 05/11/17 at 04:30 Benzonatate (Tessalon) 200 mg TID PRN PO COUGH; Start 05/11/17 at 07:30 MIGUEL ANGEL CHAVARRIA May 11, 2017 11:07
[2017-05-11] MEDS ORDERED: PHYTONADIONE 10 MG/ML INJ SC ONE (11:30)
[2017-05-11] MEDS ORDERED: LIDOCAINE 1% (MPF) 5 ML VIAL ONE (12:21)
--- NOTE | 2017-05-11 12:41 | RADRPT ---
PROCEDURE: US guided right thoracentesis. CLINICAL INDICATION: Shortness of breath. Large right pleural effusion. TECHNIQUE: Prior to the procedure, informed consent was obtained. The risks, benefits, and alternatives were e xplained to the patient through a search specialist, including but not limited to bleeding, infect ion, pain, visceral or vascular damage, shock, pneumothorax, chest tube placement, air embolism, and . The patient is Hinduism and indicated he would refuse a blood transfusion even if he would without the transfused blood. The patient understood the risks and the alternatives and wished to proceed with the study. Informed written consent was obtained. A procedural pause was performed. The patient's name, date of , and procedure to be performed were verified. Ultrasound of the right hemithorax was performed in the axial and sagittal planes. A right pleural e ffusion is noted. Utilizing ultrasound guidance, optimal location for entry to the pleural cavity wa s ascertained. The overlying skin was prepped and draped in the usual sterile fashion. Approximate ly 10 ml of 1% Xylocaine was injected locally for pain control. Using ultrasound guidance, a 5-Fren Yueh catheter was introduced into the right pleural space without difficulty. Fluid was aspirated . COMPARISON: None. FINDINGS: Initial ultrasound demonstrates fluid in the right pleural space. Approximately 1.5 liters of serou s fluid was aspirated and sent to the laboratory. IMPRESSION: 1. Satisfactory ultrasound-guided right thoracentesis. RPTAT: QQ .Fercho Kaur MD, MD Date Time Electronically viewed and signed by .Fercho Kaur MD, on 05/11/2017 12:41 .R/
--- NOTE | 2017-05-11 12:43 | RADRPT ---
PROCEDURE: XR Chest. CLINICAL INDICATION: Right pleural effusion. Post thoracentesis. TECHNIQUE: Single frontal view. COMPARISON: 05/09/2017. FINDINGS: There is a moderate right pleural effusion, smaller than seen previously. There is no left pleural e ffusion. There is right basilar atelectasis, improved. The left lung is clear. The heart size is normal. There is a very small right pneumothorax measuring 0.2 cm at the apex. There is no left pleural effusion. IMPRESSION: 1. Moderate right pleural effusion, smaller than seen previously and improved aeration of the right lung base. 2. Very small right pneumothorax measuring 0.2 cm at the apex. 3. Otherwise unremarkable chest radiograph. RPTAT: QQ .Fercho Kaur MD, MD Date Time Electronically viewed and signed by .Fercho Kaur MD, on 05/11/2017 12:42 .R/
--- NOTE | 2017-05-11 12:57 | PN ---
Date/Time of Note Date/Time of Note DATE: 05/11/17 TIME: 12:56 Assessment/Plan VTE Prophylaxis VTE Prophylaxis Intervention: LMWH Lines/Catheters IV [facility]from [facility] Saline Lock Urinary Cath still in place: No Assessment/Plan Chief Complaint/Hosp Course 57 yo male with HCV cirrhosis on Harvoni presenting wiht SOB and fever. Found to have large R sided pleural effusion Pneumonia: - Continue vanco/zosyn for now Pleural effusion: - Perhaps hepatic hydrothorax, however in setting of fever and likely pneumonia , parapneumonic effusion must be considered. TB possible. s/p thoracentesis await studies - If transudative will start diuretics Pancytopenia: - As a result of cirrhosis HCV cirrhosis: - Continue home supply of Harvoni Problems: Subjective 24 Hr Interval Summary Free Text/Dictation Remains afebrile, stable on abx Thoracentesis performed today, 1.5 L off, sent for studies Exam/Review of Systems Vital Signs Vitals Vital Signs Date Time Temp Pulse Resp B/P Pulse Ox O2 Delivery O2 Flow Rate FiO2 05/11/17 12:16 77 05/11/17 11:27 98.0 16 116/65 98 05/09/17 16:03 21 Intake and Output 05/10/17 05/10/17 05/11/17 15:00 23:00 07:00 Intake Total 200 ml 200 ml 200 ml Balance 200 ml 200 ml 200 ml Exam Constitutional: alert, oriented, well developed Psych: nl mood/affect, no complaints Head: atraumatic, normocephalic Eyes: EOMI, PERRL, nl conjunctiva, nl lids, nl sclera ENMT: nl external ears & nose, nl lips & teeth, nl nasal mucosa & septum Neck: non-tender, supple Respiratory: clear to auscultation, normal air movement Cardiovascular: nl pulses, regular rate and rhythm Gastrointestinal: nl liver, spleen, non-tender, soft Musculoskeletal: nl extremities to inspection, nl gait and stance Extremities: normal pulses Neurological: MELTING OPERATOR II-XII intact, nl mental status, nl speech, nl strength Skin: nl turgor, No rash or lesions Lymph: nl lymph nodes Results Result Diagram: 05/11/17 0637 05/11/17 0637 Results 24 hrs Laboratory Tests Test 05/10/17 23:30 05/11/17 06:37 Urine Color YELLOW Urine Clarity CLEAR Urine pH 6.0 Urine Specific [place] 1.030 Urine Ketones NEGATIVE Urine Nitrite NEGATIVE Urine Bilirubin NEGATIVE Urine Urobilinogen NEGATIVE Urine Leukocyte Esterase NEGATIVE Urine Hemoglobin NEGATIVE Urine Glucose NEGATIVE Urine Total Protein NEGATIVE White Blood Count 6.8 # Red Blood Count 3.89 L Hemoglobin 12.6 L Hematocrit 38.5 L Mean Corpuscular Volume 99.0 Mean Corpuscular Hemoglobin 32.4 Mean Corpuscular Hemoglobin Concent 32.7 Red Cell Distribution Width 18.0 H Platelet Count 56 #L Mean Platelet Volume 10.3 Neutrophils % 78.3 H Lymphocytes % 14.1 L Monocytes % 6.2 Eosinophils % 0.7 Basophils % 0.3 Nucleated Red Blood Cells % 0.0 Neutrophils # 5.3 Lymphocytes # 1.0 Monocytes # 0.4 Eosinophils # 0.1 Basophils # 0.0 Nucleated Red Blood Cells # 0.0 Prothrombin Time 22.4 H Prothrombin Time Ratio 1.8 INR International Normalized Ratio 1.92 Sodium Level 142 Potassium Level 3.8 Chloride Level 110 Carbon Dioxide Level 26 Anion Gap 10 Blood Urea Nitrogen 17 Creatinine 0.81 Glucose Level 87 Calcium Level 7.8 L Total Bilirubin 1.4 H Direct Bilirubin 0.00 Indirect Bilirubin 1.4 H Aspartate Amino Transf (AST/SGOT) 75 H Alanine Aminotransferase (ALT/SGPT) 61 Alkaline Phosphatase 164 H Total Protein 8.0 Albumin 2.4 L Globulin 5.60 H Albumin/Globulin Ratio 0.42 Alpha Fetoprotein 7.54 H Medications Medications Current Medications Ondansetron HCl (Zofran Tab) 4 mg Q6H PRN PO NAUSEA AND/OR VOMITING; Start at 23:00 Acetaminophen (Tylenol Tab) 650 mg Q6H PRN PO PAIN LEVEL 1-3 OR FEVER; Start 05/09/17 at 23:00 Patient Own Medication 3 ea BID PO Last administered on 05/11/17 09:18; Admin Dose 3 EA; Start 05/10/17 at 09:00 Patient Own Medication 1 ea 1 ea DAILY PO Last administered on 05/11/17 09:20 ; Admin Dose 1 EA; Start 05/10/17 at 09:00 Levofloxacin/ Dextrose 150 ml @ 100 mls/hr Q24H IVPB Last administered on 23:38; Admin Dose 100 MLS/HR; Start 05/10/17 at 23:00 Vancomycin HCl/ Sodium Chloride (Vancocin/NS) 250 ml @ 83.333 mls/ hr Q12H IVPB Last administered on 05/11/17t 04:21; Admin Dose 83.333 MLS/HR; Start 05/11/17 at 04:30 Benzonatate (Tessalon) 200 mg TID PRN PO COUGH; Start 05/11/17 at 07:30 ABHINAV VALDOVINOS MD May 11, 2017 12:57
[2017-05-11 13:35] LABS: FLD MN% 80.1 %; FLD PMN% 19.9 %; FLD RBC 1000 /uL; FLD WBC 261 /cmm
[2017-05-11 13:44] LABS: FLUID AMYLASE < 30 U/L; FLUID GLUCOSE 90 mg/dl; FLUID LD 203 U/L; FLUID TYPE THORACENTESIS FLUID
[2017-05-11 13:45] LABS: FLUID TOTAL PROTEIN < 2.0 g/dl
[2017-05-11 14:08] LABS: FLD CLARITY SLIGHTLY HAZY; FLD TYPE PLEURAL
[2017-05-11 14:09] LABS: FLD COLOR YELLOW
--- NOTE | 2017-05-11 15:30 | HPN ---
Date/Time of Note Date/Time of Note DATE: 05/11/17 TIME: 15:30 Interval H&P Admission Note Pt. seen H&P reviewed: No system changes FARHAD BARBOSA MD May 11, 2017 15:30
[2017-05-11] MEDS ORDERED: PROPOFOL 40 ML ONE (16:01)
--- NOTE | 2017-05-11 16:09 | OPPN ---
Date/Time of Note Date/Time of Note DATE: 05/11/17 TIME: 16:01 Proc Note GI Procedure Date 05/11/17 Indication: other (Cirrhosis) Pre-procedure Diagnosis Cirrhosis Post-procedure Diagnosis Impression: Grade III/IV esophageal varices Post EVL x7 2 shallow antral gastric ulcerations. No stigmata. Rule out H. pylori infection. Biopsies obtained Otherwise normal EGD Plan: PPI therapy Clear liquid diet, advance as tolerated Follow-up EGD for possible banding in 3 months . Procedure Performed: Endoscopy (+ EVL + Biopsies) Surgeon FARHAD BARBOSA MD See signature line Front End Architect none Anesthesia Type: MAC Tourniquet Time none EBL none Transfusion required none Biopsy 1: Gastric antrum Grafts/Implants none Tubes/Drains none Complication(s) none Disposition: PACU Procedure Description After informed consent, with the patient/relatives understanding the procedure, its indications, potential risks and complications, including but not limited to : allergic reaction, bleeding, perforation or infection, and after all pertinent questions were answered to the patients satisfaction, the patient/ relatives signed witnessed informed consent. Following this, premedication was administered slowly IV push under careful cardiovascular and respiratory monitoring with pulse oximetry, automatic blood pressure, and classroom monitor. Once the sedative effect was achieved the patient was place in the left lateral decubitus, the panendoscope was introduced and advanced under visual control. Careful examination of the upper gastrointestinal tract, both on insertion as well as withdrawal of the instrument disclosing the following findings: ESOPHAGUS: the mucosa of the entire esophagus was carefully examined and showed the following findings: There are grade III/IV esophageal varices with no stigmata. Endoscopic variceal ligation was applied 7 with no complications. Otherwise the mucosa appears within normal limits. There is no evidence of esophagitis, neoplasm, or stricture. No Hiatal Hernia identified. STOMACH: Upon entrance to the stomach air was insufflated, the gastric chery distended normally. The mucosa of the fundus, body and antrum of the stomach was carefully examined both head-on and on retroflexion, and showed the following findings: There is erythema, edema and 2 shallow ulcerations in the antrum of the stomach. Single biopsy was obtained to rule out H. pylori infection. Otherwise the mucosa appears within normal limits with no abnormalities. There is no evidence of neoplasm. PYLORUS: The pylorus was carefully examined and showed the following findings: the pylorus appears patent and within normal limits, with no evidence of gastric outlet obstruction. DUODENUM: The duodenal mucosa was carefully examined in the duodenal bulb as well as the second portion of the duodenum and showed the following findings: the mucosa appears unremarkable with no evidence of duodenitis, ulcer or neoplasm. Copies To: CC: FARHAD BARBOSA MD, MORDO MD May 11, 2017 16:09
[2017-05-11] MEDS: SPIRONOLACTONE 50 MG TAB NGT SCH (17:13)
[2017-05-11] MEDS: FUROSEMIDE 20 MG TAB PO SCH (17:14)
[2017-05-11] MEDS: ACETAMINOPHEN 650MG/20.3ML CUP PO PRN (17:14)
[2017-05-11] MEDS: PANTOPRAZOLE 40 MG INJ IV SCH (17:14)
--- NOTE | 2017-05-11 19:31 | PN ---
Date/Time of Note Date/Time of Note DATE: 05/11/17 TIME: 19:29 Assessment/Plan Lines/Catheters IV Catheter Type (from Nrsg): Saline Lock Alvares in Place (from Nrsg): No Assessment/Plan Chief Complaint/Hosp Course IMPRESSION: Right pleural effusion. INR 1.92 RECOMMENDATIONS: This patient will need right thoracentesis after INR has been corrected. Discussed with the patient. We will discuss with the referring physicians. Problems: Subjective 24 Hr Interval Summary Constitutional: improved Pain Control: mild Exam/Review of Systems Vital Signs Vitals Vital Signs Date Time Temp Pulse Resp B/P Pulse Ox O2 Delivery O2 Flow Rate FiO2 05/11/17 17:00 72 17 106/47 100 Nasal Cannula 05/11/17 16:56 98.5 05/09/17 16:03 21 Intake and Output 05/10/17 05/10/17 05/11/17 15:00 23:00 07:00 Intake Total 200 ml 200 ml 200 ml Balance 200 ml 200 ml 200 ml Exam ENMT: mucosa pink and moist, nl external ears & nose, nl lips & teeth, nl nasal mucosa & septum Neck: non-tender, supple Respiratory: clear to auscultation, normal air movement Cardiovascular: nl pulses, regular rate and rhythm Gastrointestinal: nl liver, spleen, non-tender, soft Results Result Diagram: 05/11/17 0637 05/11/17 0637 LELA EVANS MD May 11, 2017 19:31
[2017-05-11] MEDS: LEVOFLOXACIN 750MG/D5W (PMX) 150 ML IVPB SCH (23:48)
[2017-05-12] VITALS (12 sets, daily range): BP systolic 98–117; BP diastolic 62–70; PULSE 64–81; RESP 16–20
[2017-05-12 04:21] LABS: ABNORMAL IP MESSAGE 1; BASOPHILS % 0.9 % (0.0-2.0); EOSINOPHILS # 0.1 10^3/ul (0.0-0.5); EOSINOPHILS % 5.4 % (0.0-7.0); HEMATOCRIT 34.8 % (42.0-52.0); HEMOGLOBIN 11.5 g/dl (14.0-18.0); LYMPHOCYTES # 0.5 10^3/ul (0.8-2.9); LYMPHOCYTES % 21.2 % (15.0-51.0); MEAN CORPUSCULAR VOLUME 96.9 fl (82.0-101.0); MEAN PLATELET VOLUME 10.7 fl (7.4-10.4); MONOCYTE # 0.2 10^3/ul (0.3-0.9); NEUTROPHIL # 1.4 10^3/ul (1.6-7.5); NEUTROPHILS % 63.5 % (39.0-77.0); POSITIVE DIFF @See below; RED BLOOD COUNT 3.59 10^6/ul (4.70-6.10); WHITE BLOOD COUNT 2.2 10^3/ul (4.8-10.8)
[2017-05-12 04:25] LABS: ALBUMIN 2.1 g/dl (3.3-4.9); ALBUMIN/GLOBULIN RATIO 0.44; BILIRUBIN,INDIRECT 1.3 mg/dl (0-1.1); BILIRUBIN,TOTAL 1.3 mg/dl (0.2-1.3); CALCIUM 7.4 mg/dl (8.4-10.2); CREATININE 0.81 mg/dl (0.61-1.24); POTASSIUM 3.6 mmol/L (3.5-5.1); TOTAL PROTEIN 6.8 g/dl (6.1-8.1)
[2017-05-12 04:28] LABS: PLATELET COUNT 38 10^3/UL (140-415)
[2017-05-12] MEDS: VANCOMYCIN 1.5 GM in SOD CHLORIDE 0.9% 250 ML IVPB SCH ×2 (04:30→16:53)
[2017-05-12] MEDS: PANTOPRAZOLE 40 MG INJ IV SCH ×2 (06:17→18:01)
[2017-05-12] MEDS: SPIRONOLACTONE 50 MG TAB NGT SCH (06:17)
[2017-05-12] MEDS: FUROSEMIDE 20 MG TAB PO SCH (06:17)
[2017-05-12] MEDS: SOFOSBUVIR PO SCH (09:00)
[2017-05-12] MEDS: VELPATASVIR PO SCH (09:00)
[2017-05-12] MEDS: RIBAVIRIN PO SCH ×2 (09:50→21:04)
--- NOTE | 2017-05-12 10:36 | PN ---
Date/Time of Note Date/Time of Note DATE: 05/12/17 TIME: 10:36 Assessment/Plan Lines/Catheters IV Catheter Type (from Nrsg): Saline Lock Alvares in Place (from Nrsg): No Assessment/Plan Chief Complaint/Hosp Course IMPRESSION: Right pleural effusion. INR 1.92 RECOMMENDATIONS: This patient will need right thoracentesis after INR has been corrected. Discussed with the patient. We will discuss with the referring physicians. Problems: Subjective 24 Hr Interval Summary Constitutional: improved Pain Control: mild Exam/Review of Systems Vital Signs Vitals Vital Signs Date Time Temp Pulse Resp B/P Pulse Ox O2 Delivery O2 Flow Rate FiO2 05/12/17 08:11 74 05/12/17 07:20 98.1 18 101/62 96 05/11/17 17:00 Nasal Cannula 05/09/17 16:03 21 Intake and Output 05/11/17 05/11/17 05/12/17 15:00 23:00 07:00 Intake Total 200 ml 400 ml Balance 200 ml 400 ml Exam ENMT: mucosa pink and moist, nl external ears & nose, nl lips & teeth, nl nasal mucosa & septum Neck: non-tender, supple Respiratory: clear to auscultation, normal air movement Cardiovascular: nl pulses, regular rate and rhythm Gastrointestinal: nl liver, spleen, non-tender, soft Results Result Diagram: 05/12/17 0336 05/12/17 0336 LELA EVANS MD May 12, 2017 10:36
--- NOTE | 2017-05-12 15:04 | PN ---
Date/Time of Note Date/Time of Note DATE: 05/12/17 TIME: 14:45 Assessment/Plan VTE Prophylaxis VTE Prophylaxis Intervention: ambulation Lines/Catheters [facility] Peripheral IV Urinary Cath still in place: No Assessment/Plan Chief Complaint/Hosp Course Assessment: Status post EGD with ligation of varices impression: Grade III/IV esophageal varices Post EVL x7 2 shallow antral gastric ulcerations. Rule out H. pylori infection. Otherwise normal EGD Hepatitis C- currently on treatment Cirrhosis- secondary to Hep C Thrombocytopenia- likely secondary to cirrhosis S/p right thoracocentesis 05/11/17 Jehovah witness Plan: PPI therapy Clear liquid diet, advance as tolerated Continue Hep C medication Follow-up EGD for possible banding in 3 months Subjective: Patient reports doing well after thoracocentesis yesterday. Breathing improved. Needle insertion site is clear of drainage or erythema covered with Band-Aid. Patient denies abdominal pain. No tenderness noted on palpation Plan of treatment discussed with the patient and nursing staff. Imaging and laboratory tests have been reviewed. Patient has been seen in collaboration with Dr. Clement PHYSICAL EXAMINATION: GENERAL: Well developed, well nourished, alert & oriented x 3, in no acute distress SKIN: No lesions, no stigmata chronic liver disease, no evidence of bleeding diathesis LYMPHATIC: No palpable lymphadenopathy. HEAD: Normocephalic, atraumatic, no tenderness. EYES: Pupils equal reactive to light and accommodation, full extraocular movements, sclera clear, non-icteric, no discharge. EARS/NOSE AND THROAT: Ears normal, nose normal, oropharynx normal, oral membranes well hydrated without lesions. NECK: Supple, no masses, thyroid normal, JVP within normal limits, carotids normal without bruits. CHEST: Inspection within normal limits. CARDIOVASCULAR: Heart: Regular rate and rhythm, no murmurs, gallops or rubs. Peripheral pulses present within normal limits, no cyanosis, clubbing or edemas. No pulsatile abdominal mass RESPIRATORY: Lungs clear to auscultation and percussion, no wheezing, no rubs GASTROINTESTINAL AND LIVER: Abdomen: Obese, soft, non tenderness, non-distended , no hernias, no masses, no organomegaly, no ascites, no guarding, no rebound tenderness, normoactive bowel sounds. Rectal: Deferred. GENITOURINARY: [Male genitalia within normal limits. EXTREMITIES: No cyanosis, clubbing or edema. . Problems: Exam/Review of Systems Vital Signs Vitals Vital Signs Date Time Temp Pulse Resp B/P Pulse Ox O2 Delivery O2 Flow Rate FiO2 05/12/17 12:06 73 05/12/17 11:18 98.1 16 98/64 95 05/11/17 17:00 Nasal Cannula 05/09/17 16:03 21 Intake and Output 05/11/17 05/11/17 05/12/17 15:00 23:00 07:00 Intake Total 200 ml 400 ml Balance 200 ml 400 ml Results Result Diagram: 05/12/17 0336 05/12/17 0336 Results 24 hrs Laboratory Tests Test 05/12/17 03:36 05/12/17 09:48 White Blood Count 2.2 #L Red Blood Count 3.59 L Hemoglobin 11.5 L Hematocrit 34.8 L Mean Corpuscular Volume 96.9 Mean Corpuscular Hemoglobin 32.0 Mean Corpuscular Hemoglobin Concent 33.0 Red Cell Distribution Width 17.0 H Platelet Count 38 #L Mean Platelet Volume 10.7 H Neutrophils % 63.5 Lymphocytes % 21.2 Monocytes % 9.0 Eosinophils % 5.4 Basophils % 0.9 Nucleated Red Blood Cells % 0.0 Neutrophils # 1.4 L Lymphocytes # 0.5 L Monocytes # 0.2 L Eosinophils # 0.1 Basophils # 0.0 Nucleated Red Blood Cells # 0.0 Sodium Level 138 Potassium Level 3.6 Chloride Level 111 H Carbon Dioxide Level 23 Anion Gap 8 Blood Urea Nitrogen 15 Creatinine 0.81 Glucose Level 81 Calcium Level 7.4 L Total Bilirubin 1.3 Direct Bilirubin 0.00 Indirect Bilirubin 1.3 H Aspartate Amino Transf (AST/SGOT) 70 H Alanine Aminotransferase (ALT/SGPT) 62 Alkaline Phosphatase 100 Lactate Dehydrogenase 731 H Total Protein 6.8 # Albumin 2.1 L Globulin 4.70 H Albumin/Globulin Ratio 0.44 Vancomycin Level Trough 13.1 Lab Scanned Report REFERENCE LAB Medications Medications Current Medications Ondansetron HCl (Zofran Tab) 4 mg Q6H PRN PO NAUSEA AND/OR VOMITING; Start at 23:00 Patient Own Medication 3 ea BID PO Last administered on 05/12/17t 09:50; Admin Dose 3 EA; Start 05/10/17 at 09:00 Patient Own Medication 1 ea 1 ea DAILY PO Last administered on 05/12/17 09:00 ; Admin Dose 1 EA; Start 05/10/17 at 09:00 Levofloxacin/ Dextrose 150 ml @ 100 mls/hr Q24H IVPB Last administered on 05/11 23:48; Admin Dose 100 MLS/HR; Start 05/10/17 at 23:00 Vancomycin HCl/ Sodium Chloride (Vancocin/NS) 250 ml @ 83.333 mls/ hr Q12H IVPB Last administered on 05/12/17 04:30; Admin Dose 83.333 MLS/HR; Start 05/11/17 at 04:30 Benzonatate (Tessalon) 200 mg TID PRN PO COUGH Last administered on 05/11/17 21:13; Admin Dose 200 MG; Start 05/11/17 at 07:30 Pantoprazole (Protonix Iv) 40 mg BID@06,18 IV Last administered on 05/12/17 06 :17; Admin Dose 40 MG; Start 05/11/17 at 18:00 Acetaminophen (Tylenol Liquid) 650 mg Q6H PRN PO PAIN LEVEL 1-3 OR FEVER Last administered on 05/11/17 17:14; Admin Dose 650 MG; Start 05/11/17 at 17:30 Spironolactone (Aldactone) 50 mg DAILY@06 NGT Last administered on 05/12/17 06 :17; Admin Dose 50 MG; Start 05/11/17 at 17:30 Furosemide (Lasix) 20 mg DAILY@06 PO Last administered on 05/12/17 06:17; Admin Dose 20 MG; Start 05/11/17 at 17:30 WILDA MCFARLANE NP May 12, 2017 15:00
--- NOTE | 2017-05-12 15:21 | PN ---
Date/Time of Note Date/Time of Note DATE: 05/12/17 TIME: 15:17 Assessment/Plan VTE Prophylaxis VTE Prophylaxis Intervention: LMWH Lines/Catheters IV [facility] ([facility] Peripheral IV Urinary Cath still in place: No Assessment/Plan Chief Complaint/Hosp Course 57 yo male with HCV cirrhosis on Harvoni presenting wiht SOB and fever. Found to have large R sided pleural effusion, likely hepatic hydrothorax Pneumonia with GPC bacteremia: - Continue vanco/zosyn for now, can be narrowed pending C/S of bacteremia bug Pleural effusion: - Studies suggest hepatic hydrothorax, await culture though unlikely this is parapneumonic - s/p thoracentesis draining 1.5 L - Start vicente 50, lasix 20 and uptitrate as needed Pancytopenia: - As a result of cirrhosis HCV: - Continue home supply of Tattvaoni Decompensated cirrhosis w ascites, varices: - s/p EGD with esophageal varices banding - vicenet/lasix 50/20 for ascites - Further management as outpatient - No signs of HE, normal mentation Discharge in coming days Problems: Subjective 24 Hr Interval Summary Free Text/Dictation Pleural effusion studies consistent with exudative process, started on diuretics Fevers have resolved BC growing GPCs EGD done yesterday with banding of varices Feels well, no complaints aside from mild cough Exam/Review of Systems Vital Signs Vitals Vital Signs Date Time Temp Pulse Resp B/P Pulse Ox O2 Delivery O2 Flow Rate FiO2 05/12/17 15:16 98.0 81 16 117/65 100 05/11/17 17:00 Nasal Cannula 05/09/17 16:03 21 Intake and Output 05/11/17 05/11/17 05/12/17 15:00 23:00 07:00 Intake Total 200 ml 400 ml Balance 200 ml 400 ml Exam Constitutional: alert, oriented, well developed Psych: nl mood/affect, no complaints Head: atraumatic, normocephalic Eyes: EOMI, PERRL, nl conjunctiva, nl lids, nl sclera ENMT: nl external ears & nose, nl lips & teeth, nl nasal mucosa & septum Neck: non-tender, supple Respiratory: clear to auscultation, normal air movement Cardiovascular: nl pulses, regular rate and rhythm Gastrointestinal: nl liver, spleen, non-tender, soft Musculoskeletal: nl extremities to inspection, nl gait and stance Extremities: normal pulses Neurological: [employer] II-XII intact, nl mental status, nl speech, nl strength Skin: nl turgor, No rash or lesions Lymph: nl lymph nodes Results Result Diagram: 05/12/176 05/12/17 0336 Results 24 hrs Laboratory Tests Test 05/12/17 03:36 05/12/17 09:48 White Blood Count 2.2 #L Red Blood Count 3.59 L Hemoglobin 11.5 L Hematocrit 34.8 L Mean Corpuscular Volume 96.9 Mean Corpuscular Hemoglobin 32.0 Mean Corpuscular Hemoglobin Concent 33.0 Red Cell Distribution Width 17.0 H Platelet Count 38 #L Mean Platelet Volume 10.7 H Neutrophils % 63.5 Lymphocytes % 21.2 Monocytes % 9.0 Eosinophils % 5.4 Basophils % 0.9 Nucleated Red Blood Cells % 0.0 Neutrophils # 1.4 L Lymphocytes # 0.5 L Monocytes # 0.2 L Eosinophils # 0.1 Basophils # 0.0 Nucleated Red Blood Cells # 0.0 Sodium Level 138 Potassium Level 3.6 Chloride Level 111 H Carbon Dioxide Level 23 Anion Gap 8 Blood Urea Nitrogen 15 Creatinine 0.81 Glucose Level 81 Calcium Level 7.4 L Total Bilirubin 1.3 Direct Bilirubin 0.00 Indirect Bilirubin 1.3 H Aspartate Amino Transf (AST/SGOT) 70 H Alanine Aminotransferase (ALT/SGPT) 62 Alkaline Phosphatase 100 Lactate Dehydrogenase 731 H Total Protein 6.8 # Albumin 2.1 L Globulin 4.70 H Albumin/Globulin Ratio 0.44 Vancomycin Level Trough 13.1 Lab Scanned Report REFERENCE LAB Medications Medications Current Medications Ondansetron HCl (Zofran Tab) 4 mg Q6H PRN PO NAUSEA AND/OR VOMITING; Start at 23:00 Patient Own Medication 3 ea BID PO Last administered on 05/12/17 09:50; Admin Dose 3 EA; Start 05/10/17 at 09:00 Patient Own Medication 1 ea 1 ea DAILY PO Last administered on 05/12/17 09:00 ; Admin Dose 1 EA; Start 05/10/17 at 09:00 Levofloxacin/ Dextrose 150 ml @ 100 mls/hr Q24H IVPB Last administered on 05/11 23:48; Admin Dose 100 MLS/HR; Start 05/10/17 at 23:00 Vancomycin HCl/ Sodium Chloride (Vancocin/NS) 250 ml @ 83.333 mls/ hr Q12H IVPB Last administered on 05/12/17 04:30; Admin Dose 83.333 MLS/HR; Start 05/11/17 at 04:30 Benzonatate (Tessalon) 200 mg TID PRN PO COUGH Last administered on 05/11/17 21:13; Admin Dose 200 MG; Start 05/11/17 at 07:30 Pantoprazole (Protonix Iv) 40 mg BID@06,18 IV Last administered on 05/12/17 06 :17; Admin Dose 40 MG; Start 05/11/17 at 18:00 Acetaminophen (Tylenol Liquid) 650 mg Q6H PRN PO PAIN LEVEL 1-3 OR FEVER Last administered on 05/11/17 17:14; Admin Dose 650 MG; Start 05/11/17 at 17:30 Spironolactone (Aldactone) 50 mg DAILY@06 NGT Last administered on 05/12/17 06 :17; Admin Dose 50 MG; Start 05/11/17 at 17:30 Furosemide (Lasix) 20 mg DAILY@06 PO Last administered on 05/12/17 06:17; Admin Dose 20 MG; Start 05/11/17 at 17:30 ABHINAV VALDOVINOS MD May 12, 2017 15:21
--- NOTE | 2017-05-12 15:48 | CONS ---
Date/Time of Note Date/Time of Note DATE: 05/12/17 TIME: 15:46 Consult Date/Type/Reason Admit Date/Time May 09, 2017 at 19:25 Initial Consult Date Type of Consultation: Pulmonary/critical care Subjective s/p thora x 1.5 L Objective Vital Signs Date Time Temp Pulse Resp B/P Pulse Ox O2 Delivery O2 Flow Rate FiO2 05/12/17 15:16 98.0 81 16 117/65 100 05/11/17 17:00 Nasal Cannula 05/09/17 16:03 21 Intake and Output 05/11/17 05/11/17 05/12/17 15:00 23:00 07:00 Intake Total 200 ml 400 ml Balance 200 ml 400 ml Exam HEENT: Neck supple; no JVD; no LAD CVS: RRR, S1 and S2 CHEST: Decreased R breath sounds ABD: Soft, NT, + BS, + fluid wave EXT: No c/c/e Results/Medications Result Diagram: 05/12/17 0336 05/12/17 0336 Results 24 hrs Laboratory Tests Test 05/12/17 03:36 05/12/17 09:48 White Blood Count 2.2 #L Red Blood Count 3.59 L Hemoglobin 11.5 L Hematocrit 34.8 L Mean Corpuscular Volume 96.9 Mean Corpuscular Hemoglobin 32.0 Mean Corpuscular Hemoglobin Concent 33.0 Red Cell Distribution Width 17.0 H Platelet Count 38 #L Mean Platelet Volume 10.7 H Neutrophils % 63.5 Lymphocytes % 21.2 Monocytes % 9.0 Eosinophils % 5.4 Basophils % 0.9 Nucleated Red Blood Cells % 0.0 Neutrophils # 1.4 L Lymphocytes # 0.5 L Monocytes # 0.2 L Eosinophils # 0.1 Basophils # 0.0 Nucleated Red Blood Cells # 0.0 Sodium Level 138 Potassium Level 3.6 Chloride Level 111 H Carbon Dioxide Level 23 Anion Gap 8 Blood Urea Nitrogen 15 Creatinine 0.81 Glucose Level 81 Calcium Level 7.4 L Total Bilirubin 1.3 Direct Bilirubin 0.00 Indirect Bilirubin 1.3 H Aspartate Amino Transf (AST/SGOT) 70 H Alanine Aminotransferase (ALT/SGPT) 62 Alkaline Phosphatase 100 Lactate Dehydrogenase 731 H Total Protein 6.8 # Albumin 2.1 L Globulin 4.70 H Albumin/Globulin Ratio 0.44 Vancomycin Level Trough 13.1 Lab Scanned Report REFERENCE LAB Medications Current Medications Ondansetron HCl (Zofran Tab) 4 mg Q6H PRN PO NAUSEA AND/OR VOMITING; Start at 23:00 Patient Own Medication 3 ea BID PO Last administered on 05/12/17 09:50; Admin Dose 3 EA; Start 05/10/17 at 09:00 Patient Own Medication 1 ea 1 ea DAILY PO Last administered on 05/12/17 09:00 ; Admin Dose 1 EA; Start 05/10/17 at 09:00 Levofloxacin/ Dextrose 150 ml @ 100 mls/hr Q24H IVPB Last administered on 05/11 23:48; Admin Dose 100 MLS/HR; Start 05/10/17 at 23:00 Vancomycin HCl/ Sodium Chloride (Vancocin/NS) 250 ml @ 83.333 mls/ hr Q12H IVPB Last administered on 05/12/17 04:30; Admin Dose 83.333 MLS/HR; Start 05/11/17 at 04:30 Benzonatate (Tessalon) 200 mg TID PRN PO COUGH Last administered on 05/11/17 21:13; Admin Dose 200 MG; Start 05/11/17 at 07:30 Pantoprazole (Protonix Iv) 40 mg BID@06,18 IV Last administered on 05/12/17 06 :17; Admin Dose 40 MG; Start 05/11/17 at 18:00 Acetaminophen (Tylenol Liquid) 650 mg Q6H PRN PO PAIN LEVEL 1-3 OR FEVER Last administered on 05/11/17 17:14; Admin Dose 650 MG; Start 05/11/17 at 17:30 Spironolactone (Aldactone) 50 mg DAILY@06 NGT Last administered on 05/12/17 06 :17; Admin Dose 50 MG; Start 05/11/17 at 17:30 Furosemide (Lasix) 20 mg DAILY@06 PO Last administered on 05/12/17 06:17; Admin Dose 20 MG; Start 05/11/17 at 17:30 Assessment/Plan Additional Assessment/Plan IMP: 1. Hepatic Hydrothorax--s/p diagnostic/therapeutic tap RECS: 1. Agree with up-titration of aldactone and lasix. ANA MONTGOMERY MD May 12, 2017 15:48
[2017-05-12] MEDS: ACETAMINOPHEN 650MG/20.3ML CUP PO PRN (21:04)
[2017-05-13] VITALS (11 sets, daily range): BP systolic 109–119; BP diastolic 62–76; PULSE 71–94; RESP 17–20
[2017-05-13] MEDS: LEVOFLOXACIN 750MG/D5W (PMX) 150 ML IVPB SCH (00:30)
[2017-05-13] MEDS: VANCOMYCIN 1.5 GM in SOD CHLORIDE 0.9% 250 ML IVPB SCH (04:40)
[2017-05-13] MEDS: PANTOPRAZOLE (EC) 40 MG TAB PO SCH ×2 (06:27→17:48)
[2017-05-13] MEDS: SPIRONOLACTONE 50 MG TAB NGT SCH (06:27)
[2017-05-13] MEDS: FUROSEMIDE 20 MG TAB PO SCH (06:27)
[2017-05-13] MEDS: VELPATASVIR PO SCH (08:41)
[2017-05-13] MEDS: SOFOSBUVIR PO SCH (08:41)
[2017-05-13] MEDS: RIBAVIRIN PO SCH ×2 (08:41→20:42)
[2017-05-13 10:56] LABS: CALCIUM 7.9 mg/dl (8.4-10.2); CREATININE 0.97 mg/dl (0.61-1.24); POTASSIUM 4.6 mmol/L (3.5-5.1)
[2017-05-13 12:12] LABS: ABNORMAL IP MESSAGE 1; EOSINOPHILS # 0.2 10^3/ul (0.0-0.5); EOSINOPHILS % 5.4 % (0.0-7.0); HEMOGLOBIN 12.9 g/dl (14.0-18.0); LYMPHOCYTES # 0.6 10^3/ul (0.8-2.9); LYMPHOCYTES % 18.8 % (15.0-51.0); MEAN CORPUSCULAR HEMOGLOBIN 32.1 pg (29.0-33.0); MEAN CORPUSCULAR HGB CONC 32.3 g/dl (32.0-37.0); MEAN CORPUSCULAR VOLUME 99.5 fl (82.0-101.0); MEAN PLATELET VOLUME 11.1 fl (7.4-10.4); MONOCYTE # 0.3 10^3/ul (0.3-0.9); MONOCYTES % 9.9 % (0.0-11.0); NEUTROPHILS % 64.3 % (39.0-77.0); POSITIVE DIFF @See below; RED BLOOD COUNT 4.02 10^6/ul (4.70-6.10); RED CELL DISTRIBUTION WIDTH 16.9 % (11.5-14.5); WHITE BLOOD COUNT 3.1 10^3/ul (4.8-10.8)
[2017-05-13 12:14] LABS: PLATELET COUNT 50 10^3/UL (140-415)
--- NOTE | 2017-05-13 13:56 | PN ---
Date/Time of Note Date/Time of Note DATE: 05/13/17 TIME: 13:44 Assessment/Plan VTE Prophylaxis VTE Prophylaxis Intervention: ambulation Lines/Catheters IV Catheter Type (from [facility]): Saline Lock Urinary Cath still in place: No Assessment/Plan Chief Complaint/Hosp Course Assessment: Decompensated cirrhosis w ascites and varices Status post EGD with ligation of varices impression: Grade III/IV esophageal varices Post EVL x7 2 shallow antral gastric ulcerations. Rule out H. pylori infection. Otherwise normal EGD Hepatitis C- currently on treatment Thrombocytopenia- likely secondary to cirrhosis-improving S/p right thoracocentesis 05/11/17 Jehovah witness Plan: CBC today PPI therapy Continue regular diet Continue Hep C medication Follow-up EGD for possible banding in 3 months Subjective: Patient reports doing very well today . His breathing improved dramatically after thoracocentesis. The site is clear covered with Band-Aid. Patient denies abdominal pain. No tenderness on palpation. Patient desires to go home. Imaging and laboratory tests have been reviewed. Hemoglobin is trending up. Plan of treatment discussed with the patient and nursing staff. Patient has been seen in collaboration with Dr. Clement PHYSICAL EXAMINATION: GENERAL: Well developed, well nourished, alert & oriented x 3, in no acute distress SKIN: No lesions, no stigmata chronic liver disease, no evidence of bleeding diathesis LYMPHATIC: No palpable lymphadenopathy. HEAD: Normocephalic, atraumatic, no tenderness. EYES: Pupils equal reactive to light and accommodation, full extraocular movements, sclera clear, non-icteric, no discharge. EARS/NOSE AND THROAT: Ears normal, nose normal, oropharynx normal, oral membranes well hydrated without lesions. NECK: Supple, no masses, thyroid normal, JVP within normal limits, carotids normal without bruits. CHEST: Inspection within normal limits. CARDIOVASCULAR: Heart: Regular rate and rhythm, no murmurs, gallops or rubs. Peripheral pulses present within normal limits, no cyanosis, clubbing or edemas. No pulsatile abdominal mass RESPIRATORY: Lungs clear to auscultation and percussion, no wheezing, no rubs GASTROINTESTINAL AND LIVER: Abdomen: Obese, soft, non tenderness, non-distended , no hernias, no masses, no organomegaly, no ascites, no guarding, no rebound tenderness, normoactive bowel sounds. Rectal: Deferred. GENITOURINARY: [Male genitalia within normal limits. EXTREMITIES: No cyanosis, clubbing or edema. . Problems: Exam/Review of Systems Vital Signs Vitals Vital Signs Date Time Temp Pulse Resp B/P Pulse Ox O2 Delivery O2 Flow Rate FiO2 05/13/17 12:32 86 05/13/17 11:13 98.1 17 111/76 98 05/11/17 17:00 Nasal Cannula 05/09/17 16:03 21 Intake and Output 05/12/17 05/12/17 05/13/17 15:00 23:00 07:00 Intake Total 650 ml Balance 650 ml Results Result Diagram: 05/13/17 1017 05/13/17 1017 Results 24 hrs Laboratory Tests Test 05/13/17 10:17 White Blood Count 3.1 #L Red Blood Count 4.02 L Hemoglobin 12.9 L Hematocrit 40.0 L Mean Corpuscular Volume 99.5 Mean Corpuscular Hemoglobin 32.1 Mean Corpuscular Hemoglobin Concent 32.3 Red Cell Distribution Width 16.9 H Platelet Count 50 #L Mean Platelet Volume 11.1 H Neutrophils % 64.3 Lymphocytes % 18.8 Monocytes % 9.9 Eosinophils % 5.4 Basophils % 1.0 Nucleated Red Blood Cells % 0.0 Neutrophils # 2.0 Lymphocytes # 0.6 L Monocytes # 0.3 Eosinophils # 0.2 Basophils # 0.0 Nucleated Red Blood Cells # 0.0 Sodium Level 138 Potassium Level 4.6 Chloride Level 104 Carbon Dioxide Level 28 Anion Gap 11 Blood Urea Nitrogen 13 Creatinine 0.97 Glucose Level 126 # Calcium Level 7.9 L Medications Medications Current Medications Ondansetron HCl (Zofran Tab) 4 mg Q6H PRN PO NAUSEA AND/OR VOMITING; Start at 23:00 Patient Own Medication 3 ea BID PO Last administered on 05/13/17 08:41; Admin Dose 3 EA; Start 05/10/17 at 09:00; Stop 05/13/17 at 20:59 Patient Own Medication 1 ea 1 ea DAILY PO Last administered on 05/13/17 08:41 ; Admin Dose 1 EA; Start 05/10/17 at 09:00 Levofloxacin/ Dextrose 150 ml @ 100 mls/hr Q24H IVPB Last administered on 05/13 00:30; Admin Dose 100 MLS/HR; Start 05/10/17 at 23:00 Vancomycin HCl/ Sodium Chloride (Vancocin/NS) 250 ml @ 83.333 mls/ hr Q12H IVPB Last administered on 05/13/17 04:40; Admin Dose 83.333 MLS/HR; Start 05/11/17 at 04:30 Benzonatate (Tessalon) 200 mg TID PRN PO COUGH Last administered on 05/11/17 21:13; Admin Dose 200 MG; Start 05/11/17 at 07:30 Acetaminophen (Tylenol Liquid) 650 mg Q6H PRN PO PAIN LEVEL 1-3 OR FEVER Last administered on 05/12/17 21:04; Admin Dose 650 MG; Start 05/11/17 at 17:30 Spironolactone (Aldactone) 50 mg DAILY@06 NGT Last administered on 05/13/17 06 :27; Admin Dose 50 MG; Start 05/11/17 at 17:30 Furosemide (Lasix) 20 mg DAILY@06 PO Last administered on 05/13/17 06:27; Admin Dose 20 MG; Start 05/11/17 at 17:30 Pantoprazole (Protonix Tab) 40 mg BID@06,18 PO Last administered on 05/13/17 06:27; Admin Dose 40 MG; Start 05/13/17 at 06:00 Patient Own Medication 3 ea BID PO ; Start 05/13/17 at 21:00 Miscellaneous Information (*Rx Drug Level Order Reminder*) VANCO TROUGH @ 1, 530 ON ... ONCE ONCE XX ; Start 05/14/17 at 15:30; Stop 05/14/17 at 15:31 Copies To: CC: FARHAD CLEMENT MD, ANASTASIA NP May 13, 2017 13:55
--- NOTE | 2017-05-13 14:22 | CONS ---
Date/Time of Note Date/Time of Note DATE: 05/13/17 TIME: 14:20 Consult Date/Type/Reason Admit Date/Time May 09, 2017 at 19:25 Type of Consultation: Pulmonary/critical care Subjective No events. No significant dyspnea at rest. Objective Vital Signs Date Time Temp Pulse Resp B/P Pulse Ox O2 Delivery O2 Flow Rate FiO2 05/13/17 12:32 86 05/13/17 11:13 98.1 17 111/76 98 05/11/17 17:00 Nasal Cannula 05/09/17 16:03 21 Intake and Output 05/12/17 05/12/17 05/13/17 15:00 23:00 07:00 Intake Total 650 ml Balance 650 ml Exam HEENT: Neck supple; no JVD; no LAD CVS: RRR, S1 and S2 CHEST: Decreased R breath sounds ABD: Soft, NT, + BS, + fluid wave EXT: No c/c/e Results/Medications Result Diagram: 05/13/17 1017 05/13/17 1017 Results 24 hrs Laboratory Tests Test 05/13/17 10:17 White Blood Count 3.1 #L Red Blood Count 4.02 L Hemoglobin 12.9 L Hematocrit 40.0 L Mean Corpuscular Volume 99.5 Mean Corpuscular Hemoglobin 32.1 Mean Corpuscular Hemoglobin Concent 32.3 Red Cell Distribution Width 16.9 H Platelet Count 50 #L Mean Platelet Volume 11.1 H Neutrophils % 64.3 Lymphocytes % 18.8 Monocytes % 9.9 Eosinophils % 5.4 Basophils % 1.0 Nucleated Red Blood Cells % 0.0 Neutrophils # 2.0 Lymphocytes # 0.6 L Monocytes # 0.3 Eosinophils # 0.2 Basophils # 0.0 Nucleated Red Blood Cells # 0.0 Sodium Level 138 Potassium Level 4.6 Chloride Level 104 Carbon Dioxide Level 28 Anion Gap 11 Blood Urea Nitrogen 13 Creatinine 0.97 Glucose Level 126 # Calcium Level 7.9 L Medications Current Medications Ondansetron HCl (Zofran Tab) 4 mg Q6H PRN PO NAUSEA AND/OR VOMITING; Start at 23:00 Patient Own Medication 3 ea BID PO Last administered on 05/13/17t 08:41; Admin Dose 3 EA; Start 05/10/17 at 09:00; Stop 05/13/17 at 20:59 Patient Own Medication 1 ea 1 ea DAILY PO Last administered on 05/13/17 08:41 ; Admin Dose 1 EA; Start 05/10/17 at 09:00 Levofloxacin/ Dextrose 150 ml @ 100 mls/hr Q24H IVPB Last administered on 05/13 00:30; Admin Dose 100 MLS/HR; Start 05/10/17 at 23:00 Vancomycin HCl/ Sodium Chloride (Vancocin/NS) 250 ml @ 83.333 mls/ hr Q12H IVPB Last administered on 05/13/17 04:40; Admin Dose 83.333 MLS/HR; Start 05/11/17 at 04:30 Benzonatate (Tessalon) 200 mg TID PRN PO COUGH Last administered on 05/11/17 21:13; Admin Dose 200 MG; Start 05/11/17 at 07:30 Acetaminophen (Tylenol Liquid) 650 mg Q6H PRN PO PAIN LEVEL 1-3 OR FEVER Last administered on 05/12/17 21:04; Admin Dose 650 MG; Start 05/11/17 at 17:30 Spironolactone (Aldactone) 50 mg DAILY@06 NGT Last administered on 05/13/17 06 :27; Admin Dose 50 MG; Start 05/11/17 at 17:30 Furosemide (Lasix) 20 mg DAILY@06 PO Last administered on 05/13/17 06:27; Admin Dose 20 MG; Start 05/11/17 at 17:30 Pantoprazole (Protonix Tab) 40 mg BID@06,18 PO Last administered on 05/13/17 06:27; Admin Dose 40 MG; Start 05/13/17 at 06:00 Patient Own Medication 3 ea BID PO ; Start 05/13/17 at 21:00 Miscellaneous Information (*Rx Drug Level Order Reminder*) VANCO TROUGH @ 1, 530 ON ... ONCE ONCE XX ; Start 05/14/17 at 15:30; Stop 05/14/17 at 15:31 Assessment/Plan Additional Assessment/Plan IMP: 1. Hepatic Hydrothorax--s/p diagnostic/therapeutic tap RECS: 1. Agree with up-titration of aldactone and lasix 2. Follow I/O's 3. Minimize fluid intake ANA MONTGOMERY MD May 13, 2017 14:22
--- NOTE | 2017-05-13 14:46 | PN ---
Date/Time of Note Date/Time of Note DATE: 05/13/17 TIME: 14:42 Assessment/Plan VTE Prophylaxis VTE Prophylaxis Intervention: LMWH Lines/Catheters [facility] Saline Lock Urinary Cath still in place: No Assessment/Plan Chief Complaint/Hosp Course 57 yo male with HCV cirrhosis on Harvoni presenting wiht SOB and fever. Found to have large R sided pleural effusion, likely hepatic hydrothorax, s/p diagnostic thoracentesis Pneumonia: - BC speciated to coag neg staph, likely a contaminant. Dc vanco - Continue levaquin to complete 7 day course Pleural effusion: - Studies suggest hepatic hydrothorax - s/p thoracentesis draining 1.5 L - Continue vicente 50, lasix 20, seems to be having appropriate effect. Monitor a couple days on diuretics prior to discharge Pancytopenia: - As a result of cirrhosis HCV: - Continue home supply of Zigmooni Decompensated cirrhosis w ascites, varices: - s/p EGD with esophageal varices banding - vicente/lasix 50/20 for ascites - Further management as outpatient - No signs of HE, normal mentation Discharge in coming days if remains stable. Prefer to watch him on PO diuretics to ensure they are working at current dose for a couple days prior to discharge. Medically stable for dc with appropriate follow up Problems: Subjective 24 Hr Interval Summary Free Text/Dictation Fevers resolved, feels better Diuretics seems to be having appropriate effect, though I/Os not recorded Very appreciative for the care he has received. Encouraged to establish care with deportation examiner as an outpatient Exam/Review of Systems Vital Signs Vitals Vital Signs Date Time Temp Pulse Resp B/P Pulse Ox O2 Delivery O2 Flow Rate FiO2 05/13/17 12:32 86 05/13/17 11:13 98.1 17 111/76 98 05/11/17 17:00 Nasal Cannula 05/09/17 16:03 21 Intake and Output 05/12/17 05/12/17 05/13/17 15:00 23:00 07:00 Intake Total 650 ml Balance 650 ml Exam Constitutional: alert, oriented, well developed Psych: nl mood/affect, no complaints Head: atraumatic, normocephalic Eyes: EOMI, PERRL, nl conjunctiva, nl lids, nl sclera ENMT: nl external ears & nose, nl lips & teeth, nl nasal mucosa & septum Neck: non-tender, supple Respiratory: clear to auscultation, normal air movement Cardiovascular: nl pulses, regular rate and rhythm Gastrointestinal: nl liver, spleen, non-tender, soft Musculoskeletal: nl extremities to inspection, nl gait and stance Extremities: normal pulses Neurological: ROLL TRUCKER II-XII intact, nl mental status, nl speech, nl strength Skin: nl turgor, No rash or lesions Lymph: nl lymph nodes Results Result Diagram: 05/13/17 1017 05/13/17 1017 Results 24 hrs Laboratory Tests Test 05/13/17 10:17 White Blood Count 3.1 #L Red Blood Count 4.02 L Hemoglobin 12.9 L Hematocrit 40.0 L Mean Corpuscular Volume 99.5 Mean Corpuscular Hemoglobin 32.1 Mean Corpuscular Hemoglobin Concent 32.3 Red Cell Distribution Width 16.9 H Platelet Count 50 #L Mean Platelet Volume 11.1 H Neutrophils % 64.3 Lymphocytes % 18.8 Monocytes % 9.9 Eosinophils % 5.4 Basophils % 1.0 Nucleated Red Blood Cells % 0.0 Neutrophils # 2.0 Lymphocytes # 0.6 L Monocytes # 0.3 Eosinophils # 0.2 Basophils # 0.0 Nucleated Red Blood Cells # 0.0 Sodium Level 138 Potassium Level 4.6 Chloride Level 104 Carbon Dioxide Level 28 Anion Gap 11 Blood Urea Nitrogen 13 Creatinine 0.97 Glucose Level 126 # Calcium Level 7.9 L Medications Medications Current Medications Ondansetron HCl (Zofran Tab) 4 mg Q6H PRN PO NAUSEA AND/OR VOMITING; Start at 23:00 Patient Own Medication 3 ea BID PO Last administered on 05/13/17 08:41; Admin Dose 3 EA; Start 05/10/17 at 09:00; Stop 05/13/17 at 20:59 Patient Own Medication 1 ea 1 ea DAILY PO Last administered on 05/13/17 08:41 ; Admin Dose 1 EA; Start 05/10/17 at 09:00 Levofloxacin/ Dextrose 150 ml @ 100 mls/hr Q24H IVPB Last administered on 05/13 00:30; Admin Dose 100 MLS/HR; Start 05/10/17 at 23:00 Vancomycin HCl/ Sodium Chloride (Vancocin/NS) 250 ml @ 83.333 mls/ hr Q12H IVPB Last administered on 05/13/17 04:40; Admin Dose 83.333 MLS/HR; Start 05/11/17 at 04:30 Benzonatate (Tessalon) 200 mg TID PRN PO COUGH Last administered on 05/11/17 21:13; Admin Dose 200 MG; Start 05/11/17 at 07:30 Acetaminophen (Tylenol Liquid) 650 mg Q6H PRN PO PAIN LEVEL 1-3 OR FEVER Last administered on 05/12/17 21:04; Admin Dose 650 MG; Start 05/11/17 at 17:30 Spironolactone (Aldactone) 50 mg DAILY@06 NGT Last administered on 05/13/17 06 :27; Admin Dose 50 MG; Start 05/11/17 at 17:30 Furosemide (Lasix) 20 mg DAILY@06 PO Last administered on 05/13/17 06:27; Admin Dose 20 MG; Start 05/11/17 at 17:30 Pantoprazole (Protonix Tab) 40 mg BID@06,18 PO Last administered on 05/13/17 06:27; Admin Dose 40 MG; Start 05/13/17 at 06:00 Patient Own Medication 3 ea BID PO ; Start 05/13/17 at 21:00 Miscellaneous Information (*Rx Drug Level Order Reminder*) VANCO TROUGH @ 1, 530 ON ... ONCE ONCE XX ; Start 05/14/17 at 15:30; Stop 05/14/17 at 15:31 ABHINAV VALDOVINOS MD May 13, 2017 14:46
--- NOTE | 2017-05-13 15:11 | PN ---
Date/Time of Note Date/Time of Note DATE: 05/13/17 TIME: 15:10 Assessment/Plan Lines/Catheters IV Catheter Type (from Nrs): Saline Lock Alvares in Place (from Nrs): No Assessment/Plan Chief Complaint/Hosp Course IMPRESSION: Right pleural effusion. INR 1.92 RECOMMENDATIONS: This patient will need right thoracentesis after INR has been corrected. Discussed with the patient. We will discuss with the referring physicians. Problems: Subjective 24 Hr Interval Summary Constitutional: improved Pain Control: mild Exam/Review of Systems Vital Signs Vitals Vital Signs Date Time Temp Pulse Resp B/P Pulse Ox O2 Delivery O2 Flow Rate FiO2 05/13/17 12:32 86 05/13/17 11:13 98.1 17 111/76 98 05/11/17 17:00 Nasal Cannula 05/09/17 16:03 21 Intake and Output 05/12/17 05/12/17 05/13/17 14:59 22:59 06:59 Intake Total 650 ml Balance 650 ml Exam ENMT: mucosa pink and moist, nl external ears & nose, nl lips & teeth, nl nasal mucosa & septum Neck: non-tender, supple Respiratory: clear to auscultation, normal air movement Cardiovascular: nl pulses, regular rate and rhythm Results Result Diagram: 05/13/17 1017 05/13/17 1017 LELA EVANS MD May 13, 2017 15:11
[2017-05-14] VITALS (7 sets, daily range): BP systolic 103–115; BP diastolic 60–68; PULSE 78–91; RESP 20
[2017-05-14] MEDS: LEVOFLOXACIN 750MG/D5W (PMX) 150 ML IVPB SCH (00:21)
[2017-05-14] MEDS: SPIRONOLACTONE 50 MG TAB NGT SCH (06:19)
[2017-05-14] MEDS: FUROSEMIDE 20 MG TAB PO SCH (06:19)
[2017-05-14] MEDS: PANTOPRAZOLE (EC) 40 MG TAB PO SCH (06:19)
[2017-05-14] MEDS: VELPATASVIR PO SCH ×2 (08:28→11:19)
[2017-05-14] MEDS: SOFOSBUVIR PO SCH ×2 (08:28→11:19)
[2017-05-14] MEDS: RIBAVIRIN PO SCH (10:41)
[2017-05-14] MEDS ORDERED: LAS20 PO (10:44)
[2017-05-14] MEDS ORDERED: SPIR50TA PO (10:44)
--- NOTE | 2017-05-14 10:45 | PDOCDIS ---
Discharge Instructions CONDITION Patient Condition: Good HOME CARE INSTRUCTIONS: Diet Instructions: Reduced Sodium ACTIVITY: Activity Restrictions: No Restrictions FOLLOW UP/APPOINTMENTS Follow-up Plan F/U WITH YOUR PCP IN 1-2 WEEKS REBECA JIMENEZ May 14, 2017 10:45
--- NOTE | 2017-05-14 18:26 | DS ---
Date/Time of Note Date/Time of Note DATE: 05/14/17 TIME: 18:15 Discharge Summary Admission/Discharge Info Admit Date/Time May 09, 2017 at 19:25 Discharge Date/Time May 14, 2017 at 12:26 Discharge Diagnosis 1. Pleural effusion secondary to hepatic hydrothorax status post thoracentesis with 1.5 L removed DC with Lasix and Aldactone Status post antibiotics 2. SIRS secondary to upper respiratory infection Status post Levaquin 3. Cirrhosis with pancytopenia, ascites and varices secondary to HCV Continue home supply of Harvoni s/p EGD with esophageal varices banding DC with Min/lasix 50/20 for ascites Further management as outpatient No signs of HE, normal mentation Patient Condition: Good Hospital Course Patient is a 56-year-old male with a history of hep C cirrhosis who presents with cough for 5 days with sputum, patient also reports a fever as well as shortness of breath at rest. Patient was found to have a right-sided pleural effusion which was diagnosed as a hepatic hydrothorax. Patient underwent thoracentesis and 1.5 L removed. Patient did have a fever on arrival and was put on antibiotic during the hospitalization. One blood culture did show coag negative staph but this is felt to be contamination. Patient was seen by neurology and cardiothoracic surgery. Patient was seen by GI and underwent EGD which showed Grade III/IV esophageal varices status post banding with 2 shallow gastric ulcerations with no stigmata bleeding. GI recommendation was for follow -up EGD in 3 months and possible banding. Patient was felt to be stable for discharge and on discharge patient's vitals, labs and physical exam stable, had no acute complaints and questions are answered. Home Meds Active Scripts Spironolactone* (Aldactone*) 50 Mg Tablet, 50 MG PO DAILY, #60 TAB 1 Refill Prov:REBECA JIMENEZ 05/14/17 Furosemide (Lasix) 20 Mg Tab, 20 MG PO DAILY, #60 TAB 1 Refill Prov:REBECA JIMENEZ 05/14/17 Reported Medications Sofosbuvir/Velpatasvir (Epclusa 400 mg-100 mg Tablet) 1 Each Tablet, 1 EACH PO DAILY, TAB TAKE FOR 3 MONTHS START DATE 04/11/17 05/09/17 Ribavirin (Ribavirin) 200 Mg Capsule, 600 MG PO BID, CAP FOR 3 MONTHS START DATE 04/11/17 05/09/17 Discontinued Reported Medications Omeprazole* (Omeprazole*) 20 Mg Capsule., 20 MG PO DAILY, #30 CAP 11/17/16 Spironolactone* (Spironolactone*) 100 Mg Tablet, 25 MG PO DAILY, TAB 11/17/16 Propranolol Hcl* (Propranolol Hcl*) 10 Mg Tablet, 10 MG PO BID, TAB 11/17/16 [none] Unknown Strength No Conflict Check 07/01/15 Follow-up Plan F/U WITH YOUR PCP IN 1-2 WEEKS Primary Care Provider Samir Montoya Time spent on discharge: > 30 minutes REBECA JIMENEZ May 14, 2017 18:25
== END 2017-05-14 12:26 | disposition home or self-care (01) | DRG 186 ==
LOC: E/R 13:22 → TEL 19:25
PROVIDERS: ADMIT Family Medicine; ATTEND Family Medicine
PROC: 0DD78ZX Extraction of Stomach, Pylorus, Via Natural or Artificial Opening Endoscopic, Diagnostic (ICD-10-PCS; 2017-05-11)
PROC: 0W9930Z Drainage of Right Pleural Cavity with Drainage Device, Percutaneous Approach (ICD-10-PCS; principal; 2017-05-11 19:00)
PROC: 06L38CZ Occlusion of Esophageal Vein with Extraluminal Device, Via Natural or Artificial Opening Endoscopic (ICD-10-PCS; 2017-05-11 19:00)
DX: J90 Pleural effusion, not elsewhere classified (principal); J18.9 Pneumonia, unspecified organism; D61.818 Other pancytopenia; D68.9 Coagulation defect, unspecified; I85.10 Secondary esophageal varices without bleeding; R18.8 Other ascites; D69.6 Thrombocytopenia, unspecified; J94.8 Other specified pleural conditions; K74.60 Unspecified cirrhosis of liver; B19.20 Unspecified viral hepatitis C without hepatic coma; K25.9 Gastric ulcer, unspecified as acute or chronic, without hemorrhage or perforation; J06.9 Acute upper respiratory infection, unspecified
CPT/HCPCS: 32555; 36415; 71010; 71250; 80048; 80053; 80061; 80202; 80307; 81003; 82042; 82105; 82140; 82150; 82378; 82945; 83036; 83615; 83735; 83880; 83986; 84157; 84443; 84484; 85025; 85610; 85730; 86703; 87040; 87070; 87102; 87116; 87522; 88305; 88312; 89051; 90686; 93306; 94644; 96374; 96375; C9113; J0696; J1956; J2930; J3370; J7030; J7040; J7050

== ENCOUNTER 2017-05-17 11:33 | Emergency (ER) | payer OTHER ==
[~2017-05-17] VITALS: Ht 172.7 cm; Wt 86.3 kg
[~2017-05-17 11:33] MED LIST changes: +EPINEPHrine 0.1 MG/ML SYG ONE; +ETOMIDATE 20 MG INJ ONE; +LAS20 PO; +NA BICARBONATE 8.4% 50 ML SYG ONE; -OMEP20CA16 PO; -PROP10TA6 PO; +RIBA200C12 PO; +SOFO1TAB PO; -SPIR100T31 PO; +SPIR50TA PO
[2017-05-17 11:36] VITALS: Ht 172.7 cm; Wt 86.3 kg
[2017-05-17] MEDS ORDERED: PANTOPRAZOLE 40 MG INJ IV STA (12:05)
[2017-05-17] MEDS ORDERED: SOD CHLORIDE 0.9% 1,000 ML IV STA (12:05)
[2017-05-17 12:35] LABS: ABNORMAL IP MESSAGE 1; BASOPHIL # 0.1 10^3/ul (0.0-0.1); BASOPHILS % 0.5 % (0.0-2.0); EOSINOPHILS # 0.2 10^3/ul (0.0-0.5); EOSINOPHILS % 1.2 % (0.0-7.0); HEMATOCRIT 30.8 % (42.0-52.0); HEMOGLOBIN 9.9 g/dl (14.0-18.0); LYMPHOCYTES % 6.6 % (15.0-51.0); MEAN CORPUSCULAR HGB CONC 32.1 g/dl (32.0-37.0); MEAN CORPUSCULAR VOLUME 99.7 fl (82.0-101.0); MEAN PLATELET VOLUME 11.1 fl (7.4-10.4); MONOCYTE # 1.3 10^3/ul (0.3-0.9); MONOCYTES % 8.8 % (0.0-11.0); NEUTROPHIL # 12.3 10^3/ul (1.6-7.5); NEUTROPHILS % 81.9 % (39.0-77.0); PLATELET COUNT 91 10^3/UL (140-415); POSITIVE DIFF @See below; RED BLOOD COUNT 3.09 10^6/ul (4.70-6.10); RED CELL DISTRIBUTION WIDTH 16.5 % (11.5-14.5)
[2017-05-17] MEDS ORDERED: OCTREOTIDE 500 MCG in SOD CHLORIDE 0.9% 49 ML IV STA (12:39)
[2017-05-17] MEDS ORDERED: OCTREOTIDE 50 MCG in SOD CHLORIDE 0.9% 25 ML IVPB STA (12:39)
--- NOTE | 2017-05-17 12:46 | RADRPT ---
PROCEDURE: Chest x-ray CLINICAL INDICATION: Vomiting. Shortness of breath. TECHNIQUE: Chest single view COMPARISON: To 05/11/2017 FINDINGS: In the interval, a tiny right apical pneumothorax is resolved. There is a persistent moderate to lar ge right pleural effusion which is slightly increased from the prior exam. There is associated right lower lung consolidation and volume loss. Left lung is clear. Left costophrenic angle sharp. IMPRESSION: 1. Interval resolution of tiny right apical pneumothorax. 2. Moderate to large right pleural effusion which is slightly increased from prior study. 3. Associated right lower lung consolidation and volume loss RPTAT: HH .Gavino Eaton MD, MD Date Time Electronically viewed and signed by .Gavino Eaton MD, on 05/17/2017 12:45 .W/
[2017-05-17 12:50] LABS: ALANINE AMINOTRANSFERASE 52 IU/L (13-69); ALBUMIN 1.9 g/dl (3.3-4.9); ALBUMIN/GLOBULIN RATIO 0.44; ALKALINE PHOSPHATASE 152 IU/L (42-121); ANION GAP 10 (8-16); ASPARTATE AMINO TRANSFERASE 62 IU/L (15-46); BILIRUBIN,INDIRECT 2.3 mg/dl (0-1.1); BILIRUBIN,TOTAL 2.3 mg/dl (0.2-1.3); BLOOD UREA NITROGEN 14 mg/dl (7-20); CALCIUM 7.5 mg/dl (8.4-10.2); CARBON DIOXIDE 24 mmol/L (21-31); CHLORIDE 109 mmol/L (97-110); CREATININE 0.96 mg/dl (0.61-1.24); GLUCOSE 133 mg/dl (70-220); POTASSIUM 4.2 mmol/L (3.5-5.1); SODIUM 139 mmol/L (135-144); TOTAL PROTEIN 6.2 g/dl (6.1-8.1)
[2017-05-17 12:55] LABS: INR 2.26; PROTIME 25.5 Sec (11.9-14.9)
[2017-05-17 12:56] LABS: PARTIAL THROMBOPLASTIN TIME 36.6 Sec (25.0-35.0)
[2017-05-17] MEDS ORDERED: CIPROFLOXACIN 400MG/D5W 200 ML IVPB ONE (13:00)
[2017-05-17 13:06] LABS: TROPONIN-I < 0.012 ng/ml (0.00-0.12)
[2017-05-17] MEDS ORDERED: ONDANSETRON 4 MG INJ IV STA (13:33)
[2017-05-17] MEDS ORDERED: KETAMINE 500 MG INJ ONE (13:47)
[2017-05-17] MEDS ORDERED: ONDANSETRON 4 MG INJ IV PRN ×2 (14:00→14:30)
[2017-05-17] MEDS ORDERED: ACETAMINOPHEN 325 MG TAB PO PRN ×2 (14:00→14:30)
[2017-05-17] MEDS ORDERED: SODIUM CHLORIDE 0.9% 1L BAG IV* STA (14:01)
[2017-05-17] MEDS ORDERED: PANTOPRAZOLE IV 80 MG in SOD CHLORIDE 0.9% 100 ML IV STA (14:03)
[2017-05-17] MEDS ORDERED: KETAMINE 500 MG INJ IV STA (14:19)
[2017-05-17] MEDS ORDERED: MIDAZOLAM (DRIP) 50 mg/50 mL 50 ML IV STA (14:19)
[2017-05-17] MEDS ORDERED: SUCCINYLCHOLINE CHLORIDE 100 MG/5 ML SYG IV STA (14:19)
[2017-05-17] MEDS ORDERED: DOCUSATE SODIUM 100 MG CAP PO PRN (14:30)
[2017-05-17] MEDS ORDERED: VANCOMYCIN IV PER PHARMACY XX SCH (14:30)
[2017-05-17] MEDS ORDERED: ACETAMINOPHEN 650 MG SUPP PR PRN (14:30)
[2017-05-17] MEDS ORDERED: HYDROCODONE/APAP (5/325) TAB PO PRN ×2 (14:30)
[2017-05-17] MEDS ORDERED: BISACODYL 10 MG SUPP PR PRN (14:30)
[2017-05-17] MEDS ORDERED: HYDROmorphONE 1 MG/ML SYG IV ONE (14:30)
[2017-05-17] MEDS ORDERED: morphine 2 MG INJ IV PRN (14:30)
[2017-05-17] MEDS ORDERED: MAGNESIUM HYDROXIDE 30ML CUP PO PRN (14:30)
[2017-05-17] MEDS ORDERED: NACL 0.9% 3 ML SYG IV SCH (14:30)
--- NOTE | 2017-05-17 14:30 | ERD ---
ER Documentation Chief Complaint Chief Complaint hematemesis this morning, feels faint HPI Patient is a 57-year-old male with hepatitis C and cirrhosis who presents with vomiting blood. He had 2 episodes of vomiting blood this morning. He had blood in his stool. He feels weak and dizzy. He was recently admitted and discharged 3 days ago and at that time he had a colonoscopy which showed esophageal varices and gastric ulcers. He went to the [facility] emergency department today so this is a second visit to an emergency department in 1 day. Upon review of old medical records his primary doctor is Dr. Vega. Dr. Clement performed the recent endoscopy while he was admitted. ROS All systems reviewed and are negative except as per history of present illness. Medications Home Meds Active Scripts Spironolactone* (Aldactone*) 50 Mg Tablet, 50 MG PO DAILY, #60 TAB 1 Refill Prov:REBECA JIMENEZ 05/14/17 Furosemide (Lasix) 20 Mg Tab, 20 MG PO DAILY, #60 TAB 1 Refill Prov:REBECA JIMENEZ 05/14/17 Reported Medications Sofosbuvir/Velpatasvir (Epclusa 400 mg-100 mg Tablet) 1 Each Tablet, 1 EACH PO DAILY, TAB TAKE FOR 3 MONTHS START DATE 04/11/17 05/09/17 Ribavirin (Ribavirin) 200 Mg Capsule, 600 MG PO BID, CAP FOR 3 MONTHS START DATE 04/11/17 05/09/17 Allergies Allergies: Coded Allergies: Penicillins (Verified Allergy, Unknown, 05/09/17) PMhx/Soc History of Surgery: Yes (herniectomy (2017)) Anesthesia Reaction: No Hx Neurological Disorder: No Hx Respiratory Disorders: Yes (Pneumonia) Hx Cardiac Disorders: No Hx Psychiatric Problems: Yes (Depression (25 years ago)) Hx Miscellaneous Medical Probl: No Hx Alcohol Use: Yes (15 years ago) Hx Substance Use: No Hx Tobacco Use: No Smoking Status: Former smoker FmHx Family History: No diabetes Physical Exam Vitals Vital Signs Date Time Temp Pulse Resp B/P Pulse Ox O2 Delivery O2 Flow Rate FiO2 05/17/17 12:18 Nasal Cannula 2 05/17/17 11:36 97.7 102 18 84/54 100 Physical Exam Const: Moderate distress Head: Atraumatic Eyes: Normal Conjunctiva ENT: Normal External Ears, Nose and Mouth. Neck: Full range of motion..~ No meningismus. Resp: Clear to auscultation bilaterally Cardio: Regular rate and rhythm, no murmurs Abd: Soft, non tender, non distended. Normal bowel sounds Skin: Pale skin Back: No midline or flank tenderness Ext: No cyanosis, or edema Neur: Awake and alert Psych: Normal Mood and Affect Result Diagram: 05/17/17 1220 05/17/17 1220 Results 24 hrs Laboratory Tests Test 05/17/17 12:20 White Blood Count 15.010^3/ul Red Blood Count 3.0910^6/ul Hemoglobin 9.9g/dl Hematocrit 30.8% Mean Corpuscular Volume 99.7fl Mean Corpuscular Hemoglobin 32.0pg Mean Corpuscular Hemoglobin Concent 32.1g/dl Red Cell Distribution Width 16.5% Platelet Count 9110^3/UL Mean Platelet Volume 11.1fl Neutrophils % 81.9% Lymphocytes % 6.6% Monocytes % 8.8% Eosinophils % 1.2% Basophils % 0.5% Nucleated Red Blood Cells % 0.0/100WBC Neutrophils # 12.310^3/ul Lymphocytes # 1.010^3/ul Monocytes # 1.310^3/ul Eosinophils # 0.210^3/ul Basophils # 0.110^3/ul Nucleated Red Blood Cells # 0.010^3/ul Prothrombin Time 25.5Sec Prothrombin Time Ratio 2.0 INR International Normalized Ratio 2.26 Activated Partial Thromboplast Time 36.6Sec Sodium Level 139mmol/L Potassium Level 4.2mmol/L Chloride Level 109mmol/L Carbon Dioxide Level 24mmol/L Anion Gap 10 Blood Urea Nitrogen 14mg/dl Creatinine 0.96mg/dl Glucose Level 133mg/dl Calcium Level 7.5mg/dl Total Bilirubin 2.3mg/dl Direct Bilirubin 0.00mg/dl Indirect Bilirubin 2.3mg/dl Aspartate Amino Transf (AST/SGOT) 62IU/L Alanine Aminotransferase (ALT/SGPT) 52IU/L Alkaline Phosphatase 152IU/L Troponin I < 0.012ng/ml Total Protein 6.2g/dl Albumin 1.9g/dl Globulin 4.30g/dl Albumin/Globulin Ratio 0.44 Lipase 193U/L Current Medications Medications (Trade) Dose Ordered Sig/[place] Route PRN Reason Start Time Stop Time Status Last Admin Dose Admin Sodium Chloride (NS) 1,000 ml @ 1,000 mls/hr Q1H STAT IV 05/17/17 12:05 05/17/17 13:04 DC 05/17/17 12:14 Pantoprazole 40 mg 40 mg ONCE STAT IV 05/17/17 12:05 05/17/17 12:06 DC 05/17/17 12:16 Octreotide Acetate 50 mcg/ Sodium Chloride 26 ml @ 100 mls/hr Q16M STAT IVPB 05/17/17 12:39 05/17/17 12:54 DC 05/17/17 13:19 Octreotide Acetate 500 mcg/ Sodium Chloride 50 ml @ 5 mls/hr ONCE STAT IV 05/17/17 12:39 05/17/17 22:38 05/17/17 13:19 Ciprofloxacin/ Dextrose (Cipro Ivpb) 200 ml @ 200 mls/hr ONCE ONCE IVPB 05/17/17 13:00 05/17/17 13:59 DC 05/17/17 13:18 Ondansetron HCl (Zofran Inj) 8 mg ONCE STAT IV 05/17/17 13:33 05/17/17 13:34 DC Ondansetron HCl (Zofran Inj) 4 mg ER BRIDGE PRN IV NAUSEA AND/OR VOMITING 05/17/17 14:00 05/18/17 13:59 Acetaminophen (Tylenol Tab) 650 mg ER BRIDGE PRN PO MILD PAIN/FEVER 05/17/17 14:00 05/18/17 13:59 Ketamine HCl (Ketalar) 500 mg STK-MED ONCE .ROUTE 05/17/17 13:47 05/17/17 13:48 DC Sodium Chloride 2680 ml 2,680 ml BOLUS OVER 2 HOURS STAT IV* 05/17/17 14:01 05/17/17 14:04 DC Pantoprazole/ Sodium Chloride (Protonix Iv/NS) 100 ml @ 10 mls/hr ONCE STAT IV 05/17/17 14:03 05/18/17 00:02 Furosemide (Lasix) 20 mg DAILY PO 05/18/17 09:00 Spironolactone (Aldactone) 50 mg DAILY PO 05/18/17 09:00 Miscellaneous Information 600 mg BID PO 05/17/17 21:00 UNV Miscellaneous Information 1 each DAILY PO 05/18/17 09:00 UNV IV Flush (NS 3 ml) 3 ml PER PROTOCOL IV 05/17/17 14:30 Ondansetron HCl (Zofran Inj) 4 mg Q6H PRN IV NAUSEA AND/OR VOMITING 05/17/17 14:30 Acetaminophen (Tylenol Tab) 650 mg Q6H PRN PO PAIN LEVEL 1-3 OR FEVER 05/17/17 14:30 Acetaminophen (Tylenol Supp) 650 mg Q6H PRN [place] PAIN LEVEL 1-3 OR FEVER 05/17/17 14:30 Acetaminophen/ Hydrocodone Bitart ([place] (5/325)) 1 tab Q6H PRN PO MODERATE PAIN LEVEL 4-6 05/17/17 14:30 Acetaminophen/ Hydrocodone Bitart ([place] (5/325)) 2 tab Q6H PRN PO SEVERE PAIN LEVEL 7-10 05/17/17 14:30 UNV Morphine Sulfate (morphine) 2 mg Q4H PRN IV SEVERE PAIN LEVEL 7-10 05/17/17 14:30 UNV Docusate Sodium (Colace) 100 mg Q12H PRN PO CONSTIPATION 05/17/17 14:30 UNV Magnesium Hydroxide (Milk Of Mag) 30 ml DAILY PRN PO CONSTIPATION 05/17/17 14:30 UNV Bisacodyl (Dulcolax Supp) 10 mg DAILY PRN [place] CONSTIPATION 05/17/17 14:30 UNV Procedures/MDM EKG read by me: Rate/Rhythm: Regular rate and rhythm at a normal rate Intervals: Normal Impression: No evidence of ischemia or arrhythmia Endotracheal Intubation by me: Pre assessment performed. Pre-oxygenation performed with 100% oxygen RSI: Performed w/o complication or hypoxic events. Medications as ordered. Blade: MAC 4 Glidescope ET Tube: 7.5 cm Depth: 23 cm at the lip Intubation confirmed by colorimetric CO2, equal breath sounds, quiet over the stomach. Chest x-ray pending. I was called into room 5 for a CODE BLUE event. The patient was receiving high- quality CPR and being bagged by respiratory therapy. I immediately took over as the CODE BLUE leader and ran the code. Please see the code sheet for full details. The patient received 2 doses of epinephrine. The final results of the CODE BLUE was spontaneous circulation. HPI: Please note the history and physical exam is limited as the patient is receiving CPR at this time. The patient is in full cardiac arrest. Physical exam: The patient is being bagged by respiratory therapy. There is no movement. GCS is 3. Patient is a 57-year-old male presents with acute esophageal variceal massive GI hemorrhage. The patient was given Protonix, Protonix drip, octreotide IV, octreotide drip, and ceftriaxone. However the patient had a massive episode of hematemesis in the emergency department and then became severely short of breath and the decision was made to intubate the patient. He was intubated and very quickly lost pulses after intubation and CPR was started. The patient regained pulses after 2 rounds of CPR and will be admitted to the care of Dr. Durham from the panel team to the ICU. Dr. Clement was consulted as well and I am awaiting a callback at this time. The patient is a Hol[employer] and is adamantly refusing all blood products even prior to intubation. His prognosis is very poor given his esophageal varices and massive hemorrhage and drop in hemoglobin from 12.9 to 9 within the last 4 days. Discussion with the family regarding goals of care would be appropriate. Critical Care: Time: 50 minutes excluding all billable procedures. Treatments/Evaluations: Close monitoring and treatment of unstable vital signs, cardiorespiratory, and neurologic status, while maintaining tight balance of fluid, respiratory, and cardiac interventions. Departure Diagnosis: Primary Impression: Hematemesis Nausea presence: with nausea Qualified Code: K92.0 - Hematemesis with nausea Additional Impressions: Anemia Anemia type: unspecified type Qualified Code: D64.9 - Anemia, unspecified type Respiratory failure Chronicity: acute Respiratory failure complication: unspecified whether with hypoxia or hypercapnia Qualified Code: J96.00 - Acute respiratory failure , unspecified whether with hypoxia or hypercapnia Esophageal varices Esophageal varices type: unspecified type Esophageal varices bleeding: with bleeding Qualified Code: I85.01 - Bleeding esophageal varices, unspecified esophageal varices type Condition: Critical JACKELYN MORE MD May 17, 2017 14:30
[2017-05-17] MEDS ORDERED: NA BICARBONATE 8.4% 50 ML SYG ONE (14:57)
--- NOTE | 2017-05-17 14:57 | RADRPT ---
PROCEDURE: XR Chest. CLINICAL INDICATION: Status post intubation TECHNIQUE: Single portable view of the chest was obtained COMPARISON: Same Day FINDINGS: There is a new endotracheal tube 1.8 cm above the nedra. There is a large right pleural effusion. There is mild cardiomegaly. RPTAT: AA IMPRESSION: New endotracheal tube in appropriate position. Large right pleural effusion. .Zohaib Carroll MD, MD Date Time Electronically viewed and signed by .Zohaib Carroll MD, MD on 05/17/2017 14:56 .S/
[2017-05-17] MEDS ORDERED: EPINEPHrine 0.1 MG/ML SYG ONE (15:01)
[2017-05-17 15:13] LABS: AADO2 Arterial 559.1 mmHg (7.0-24.0); Allen Test ACCEPTAB; Arterial Base Excess -12.8 mmol/L (-3.0-3); Arterial COHb 0.3 % (0.0-3.0); Arterial HCO3 14.9 mmol/L (22.0-26.0); Arterial MetHb 0.5 % (0.0-1.5); Arterial Total Hemglobin 5.6 g/dl (12.0-18.0); MODE VENT - AC
[2017-05-17 15:17] VITALS: BP 34/21; PULSE 102; RESP 16
--- NOTE | 2017-05-17 15:57 | QN ---
Documentation Comment Was consulted to see the patient for admission however upon arrival patient had already been undergoing cardiac arrest with ACLS being performed. Patient reportedly at 1543. ER staff following for further management Discussed case with NAVA Mar May 17, 2017 15:57
--- NOTE | 2017-05-17 17:03 | CONS ---
Date/Time of Note Date/Time of Note DATE: 05/17/17 TIME: 16:25 Assessment/Plan Assessment/Plan Chief Complaint/Hosp Course Assessment: Hematemesis Anemia Hepatitis C Liver cirrhosis with ascites Status post EGD for variceal ligation 05/11/17: Impression: Grade III/IV esophageal varices Post EVL x7 2 shallow antral gastric ulcerations. 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 Clement Problems: Consultation Date/Type/Reason Admit Date/Time Date of Consultation: May 17, 2017 Type of Consultation: GI Reason for Consultation Hematemesis/anemia Hx of Present Illness This is 57-year-old male who was recently hospitalized for pleural effusion, treated and discharged home 3 days ago. Patient has a history of hepatitis C and liver cirrhosis with ascites. During hospitalization he undergone EGD with ligation of varices. He was also found to have gastric ulceration and was treated with PPIs. Patient's H&H was stable at the discharge. According to the family patient started vomiting blood this morning , after the second episode he was complaining of feeling weak and was taken to the ED. on their arrival patient was started on octreotide drip. After another episode of hematemesis he went into respiratory distress and was intubated. Shortly after intubation patient coded twice and both times was resuscitated with chest compressions. Patient's niece and DPOA are at the bedside. Patient' s hemoglobin dropped to 5.1. Patient is Islam. The plan is to continue octreotide drip and schedule an emergency endoscopy. Discussed the plan with the family and medical team. Patient's family is agreeable to the procedure. Patient unresponsive, intubated. Gastrointestinal: other (See HPI) Past Medical History That is C, liver cirrhosis with ascites, esophageal varices, gastric ulcer, Past Surgical History Hernia repair Past Surgical Hx: other Family History Significant Family History: no pertinent family hx Social History Alcohol Use: other (15 years ago) Smoking Status: Former smoker Drug Use: none Exam/Review of Systems Vital Signs Vitals Vital Signs Date Time Temp Pulse Resp B/P Pulse Ox O2 Delivery O2 Flow Rate FiO2 05/17/17 15:17 102 16 34/21 97 Mechanical Ventilator 05/17/17 13:30 100 05/17/17 12:18 2 05/17/17 11:36 97.7 Exam PHYSICAL EXAMINATION: GENERAL: Unresponsive, intubated, in acute distress SKIN: Pale, jaundiced, no lesions, no stigmata chronic liver disease, no evidence of bleeding diathesis LYMPHATIC: No palpable lymphadenopathy. HEAD: Normocephalic, atraumatic, no tenderness. EYES: sclera clear, icteric, no discharge. EARS/NOSE AND THROAT: ET tube is in place, bloody oral secretions. NECK: Supple, no masses. CHEST: Inspection within normal limits on the ventilator CARDIOVASCULAR: Heart: Thready pulses, tachycardia. RESPIRATORY: Lungs clear to auscultation and percussion. GASTROINTESTINAL AND LIVER: Abdomen: Soft, distended, no hernias, no masses, no organomegaly, ascites, no bowel sounds present. Rectal: Deferred. GENITOURINARY: Male genitalia within normal limits. EXTREMITIES: Peripheral cyanosis, clubbing or edema. Constitutional: other (See physical exam) Results Result Diagram: 05/17/17 1220 05/17/17 1220 Results 24 hrs Laboratory Tests Test 05/17/17 12:20 05/17/17 14:19 White Blood Count 15.0 #H Red Blood Count 3.09 #L Hemoglobin 9.9 #L Hematocrit 30.8 #L Mean Corpuscular Volume 99.7 Mean Corpuscular Hemoglobin 32.0 Mean Corpuscular Hemoglobin Concent 32.1 Red Cell Distribution Width 16.5 H Platelet Count 91 #L Mean Platelet Volume 11.1 H Neutrophils % 81.9 H Lymphocytes % 6.6 L Monocytes % 8.8 Eosinophils % 1.2 Basophils % 0.5 Nucleated Red Blood Cells % 0.0 Neutrophils # 12.3 H Lymphocytes # 1.0 Monocytes # 1.3 H Eosinophils # 0.2 Basophils # 0.1 Nucleated Red Blood Cells # 0.0 Prothrombin Time 25.5 H Prothrombin Time Ratio 2.0 INR International Normalized Ratio 2.26 Activated Partial Thromboplast Time 36.6 H Sodium Level 139 Potassium Level 4.2 Chloride Level 109 Carbon Dioxide Level 24 Anion Gap 10 Blood Urea Nitrogen 14 Creatinine 0.96 Glucose Level 133 Calcium Level 7.5 L Total Bilirubin 2.3 H Direct Bilirubin 0.00 Indirect Bilirubin 2.3 H Aspartate Amino Transf (AST/SGOT) 62 H Alanine Aminotransferase (ALT/SGPT) 52 Alkaline Phosphatase 152 H Troponin I < 0.012 Total Protein 6.2 Albumin 1.9 L Globulin 4.30 H Albumin/Globulin Ratio 0.44 Lipase 193 Blood Gas Specimen Source Blood arterial Arterial Blood Date Drawn 05/17/2017 3:00:19 PM Arterial Blood pH (Temp corrected) 7.148 *L Arterial Blood pCO2 (Temp correct) 43.9 Arterial Blood pO2 (Temp corrected) 110.0 H Arterial Blood HCO3 14.9 L Arterial Blood Base Excess -12.8 L Arterial Blood Oxygen Saturation 95.8 Jone Test ACCEPTAB Arterial Blood Gas Puncture Site Right Radial Arterial Blood Carboxyhemoglobin 0.3 Arterial Blood Methemoglobin 0.5 Blood Gas A-a O2 Differential 559.1 H Oxyhemoglobin Percent 95.0 Total Hemoglobin 5.6 L Blood Gas Temperature 37.0 Blood Gas Respiration Rate 18.0 Blood Gas Actual Respiration Rate 18 Blood Gas Modality VENT - AC FiO2 100.0 Blood Gas Tidal Volume 500.0 Blood Gas Low PEEP Setting 5.0 Blood Gas Critical Value Read Back DR DERIK Leggett Blood Gas Notified Whom SHER Blood Gas Notified Time 05/17/2017 3:13:48 PM Medications Medications Current Medications Furosemide (Lasix) 20 mg DAILY PO ; Start 05/18/17 at 09:00 Spironolactone (Aldactone) 50 mg DAILY PO ; Start 05/18/17 at 09:00 Miscellaneous Information 600 mg BID PO ; Start 05/17/17 at 21:00; Status UNV Miscellaneous Information 1 each DAILY PO ; Start 05/18/17 at 09:00; Status UNV Ondansetron HCl (Zofran Inj) 4 mg Q6H PRN IV NAUSEA AND/OR VOMITING; Start 05/17/17 at 14:30 Acetaminophen (Tylenol Tab) 650 mg Q6H PRN PO PAIN LEVEL 1-3 OR FEVER; Start 05/17/17 at 14:30 Acetaminophen (Tylenol Supp) 650 mg Q6H PRN [place] PAIN LEVEL 1-3 OR FEVER; Start 05/17/17 at 14:30 Acetaminophen/ Hydrocodone Bitart ([place] (5/325)) 1 tab Q6H PRN PO MODERATE PAIN LEVEL 4-6; Start 05/17/17 at 14:30 Acetaminophen/ Hydrocodone Bitart ([place] (5/325)) 2 tab Q6H PRN PO SEVERE PAIN LEVEL 7-10; Start 05/17/17 at 14:30 Morphine Sulfate (morphine) 2 mg Q4H PRN IV SEVERE PAIN LEVEL 7-10; Start 05/17 at 14:30 Docusate Sodium (Colace) 100 mg Q12H PRN PO CONSTIPATION; Start 05/17/17 at 14: 30 Magnesium Hydroxide (Milk Of Mag) 30 ml DAILY PRN PO CONSTIPATION; Start at 14:30 Bisacodyl 10 mg 10 mg DAILY PRN [place] CONSTIPATION; Start 05/17/17 at 14:30 Aztreonam/Sodium Chloride (Azactam/NS) 100 ml @ 100 mls/hr Q8 IVPB ; Start 05/17/17 at 22:00; Status UNV Copies To: CC: FARHAD CLEMENT MD, ANASTASIA NP May 17, 2017 16:36
[2017-05-17] MEDS ORDERED: RIBAVIRIN 600 MG PO SCH (21:00)
[2017-05-17] MEDS ORDERED: AZTREONAM 2 GM in SOD CHLORIDE 0.9% 100 ML IVPB SCH (22:00)
[2017-05-18] MEDS ORDERED: SPIRONOLACTONE 50 MG TAB PO SCH (09:00)
[2017-05-18] MEDS ORDERED: NON-FORMULARY/PATIENT OWN MED (Sofosbuvir/Velpatasvir (Epclusa 400 mg-100 mg Tablet) 1 EAC PO SCH (09:00)
[2017-05-18] MEDS ORDERED: FUROSEMIDE 20 MG TAB PO SCH (09:00)
== END 2017-05-17 19:56 | disposition expired ==
LOC: E/R 11:33
DX: K92.0 Hematemesis (principal); D64.9 Anemia, unspecified; J96.00 Acute respiratory failure, unspecified whether with hypoxia or hypercapnia; I85.01 Esophageal varices with bleeding; R40.2142 Coma scale, eyes open, spontaneous, at arrival to emergency department; R40.2252 Coma scale, best verbal response, oriented, at arrival to emergency department; R40.2362 Coma scale, best motor response, obeys commands, at arrival to emergency department; R42 Dizziness and giddiness; Z87.891 Personal history of nicotine dependence
CPT/HCPCS: 31500; 36415; 36600; 51702; 71010; 80053; 82803; 83690; 84484; 85025; 85610; 85730; 86850; 86900; 86901; 92950; 93005; 96374; 96375; C9113; J0171; J0744; J2354; J2405; J7030; Z7502; Z7610; 94002